=== PATIENT | male | born 1940 | race Caucasian/White ===

== ENCOUNTER 2017-02-05 09:02 | Inpatient (IN) | payer MEDICARE, BC ==
[~2017-02-05] VITALS: Ht 182.9 cm; Wt 91.2 kg
[2017-02-05] VITALS (12 sets, daily range): BP systolic 119–144; BP diastolic 65–80; PULSE 58–88; RESP 16–19; TEMP 96.2–98.2; O2SAT 92–99
[~2017-02-05 09:02] MED LIST: ALBU6.7H INH; ASPI81 PO; CARV3.125 PO; CITA20 PO; DUONI NEB; FURO20 PO; HYDRO25 PO; LISI10 PO; METF850 PO; MIRTA15 PO; PRED5 PO; RANI150T PO; TAB-TAB PO; WALKER ROLLING; WARF7.5 PO
[2017-02-05] MEDS ORDERED: SODIUM CHLORIDE 0.9% FLUSH 10 ML FLUSH IVF PRN (09:30)
--- NOTE | 2017-02-05 09:38 | PD ---
HPI Chief Complaint: shortness of breath Time Seen by Provider: 09:18 Travel History International Travel<30 days: No Contact w/Intl Traveler<30days: No Traveled to known affect area: No History of Present Illness HPI 76-year-old male with history of PE on Coumadin, CHF, CAD, CABG, COPD, brought in by ambulance from shelter for evaluation of shortness of breath. The patient reports that shortest of breath started yesterday evening. The patient felt short of breath at rest. He is also complaining of orthopnea. He denies chest pain. States that he has had a cough that is nonproductive. EMS reports that his O2 saturation was 90% on room air when they arrived at the shelter. PFSH Past Medical History Arthritis: Yes Depression: Yes Heart Rhythm Problems: No Cancer: Yes (SKIN, NOSE) Cardiovascular Problems: Yes (OPEN HEART SX) High Cholesterol: Yes Congestive Heart Failure: No COPD: Yes Diabetes: Yes Diminished Hearing: No Endocrine: Yes Genitourinary: No Hypertension: Yes Musculoskeletal: No Neurologic: No Psychiatric: No Reproductive: No Respiratory: Yes (COPD) Myocardial Infarction: Yes Seizures: No Sleep Apnea: Yes Thyroid Disease: Yes (RESOLVED) Past Surgical History Abdominal Surgery: Yes (COLOSTOMY AND REVERSAL, COLON RESECTION) Cardiac Surgery: Yes (QUAD BYPASS MAY 2007) Coronary Artery Bypass Graft: Yes (4 WAY BYPASS [place] 2006) Other Surgery: Yes Social History Alcohol Use: Yes (OCCASIONALLY) Tobacco Use: No Substance Use: No Allergies-Medications (Allergen,Severity, Reaction): Coded Allergies: No Known Allergies (Verified , 07/22/15) Reported Meds & Prescriptions Reported Meds & Active Scripts Active Reported Lisinopril 5 Mg Tab 5 Mg PO DAILY Multivitamin Adults (Multiple Vitamins W/ Minerals) 1 Tab 1 Tab PO DAILY Furosemide 20 Mg Tab 20 Mg PO DAILY Carvedilol 3.125 Mg Tab 3.125 Mg PO BID Ranitidine (Ranitidine HCl) 150 Mg Tab 150 Mg PO DAILY Mirtazapine 15 Mg Tab 15 Mg PO HS Hydroxyzine HCl 25 Mg Tab 25 Mg PO QID PRN Loperamide (Loperamide HCl) 2 Mg Tab 2 Mg PO DIRECTED PRN One tablet after each loose stool. Not to exceed 8 tablets per day. Warfarin 6 Mg Tab 7 Mg PO DAILY Proventil Hfa 6.7 GM Inh (Albuterol Sulfate) 90 Mcg/Act Aer 1 Puff INH Q4H PRN Levothyroxine (Levothyroxine Sodium) 50 Mcg Tab 50 Mcg PO DAILY Duoneb (Ipratropium-Albuterol Neb) 0.5-2.5 Mg/3 Ml Neb 1 Nebule INH BID Sucralfate 1 Gm Tab 1 Gm PO BID on empty stomach Sertraline (Sertraline HCl) 50 Mg Tab 75 Mg PO DAILY Review of Systems Except as stated in HPI: all other systems reviewed are Neg Physical Exam Narrative GENERAL: Well-developed, well-nourished, elderly-appearing male, mild respiratory distress with accessory muscle use, speaking full sentences. SKIN: Focused skin assessment warm/dry. HEAD: Atraumatic. Normocephalic. EYES: Pupils equal and round. No scleral icterus. No injection or drainage. ENT: Mucous membranes pink and moist. NECK: Trachea midline. No JVD. CARDIOVASCULAR: Regular rate and rhythm. No murmur appreciated. RESPIRATORY: Mild respiratory distress with accessory muscle use. Speaking full sentences. Poor air movement bilaterally. Slight bibasilar rales. No wheezes or rhonchi. GASTROINTESTINAL: Abdomen soft, non-tender, nondistended. MUSCULOSKELETAL: No obvious deformities. No clubbing. No cyanosis. Mild bilateral lower extremity edema from foot to mid leg. NEUROLOGICAL: Awake and alert. No obvious cranial nerve deficits. Motor grossly within normal limits. Normal speech. PSYCHIATRIC: Appropriate mood and affect; insight and judgment normal. Data Data Last Documented VS Vital Signs Date Time Temp Pulse Resp B/P Pulse Ox O2 Delivery O2 Flow Rate FiO2 02/05/17 10:53 58 16 119/65 98 Room Air 2 02/05/17 09:29 98.2 Orders Complete Blood Count With Diff (02/05/17 09:30) Comprehensive Metabolic Panel (02/05/17 09:30) B-Type Natriuretic Peptide (02/05/17 09:30) Act Partial Throm Time (Ptt) (02/05/17:30) Prothrombin Time / Inr (Pt) (02/05/17 09:30) Ckmb (Isoenzyme) Profile (02/05/17 09:30) Troponin I (02/05/17 09:30) Influenzae A/B Antigen (02/05/17 09:30) Iv Access Insert/Monitor (02/05/17 09:30) Ecg Monitoring (02/05/17 09:30) Oximetry (02/05/17 09:30) Oxygen Administration (02/05/17 09:30) Chest, Single Ap (02/05/17 09:30) Sodium Chloride 0.9% Flush (Ns Flush) (02/05/17 09:30) Methylprednisolone So Succ Inj (Solumedr (02/05/17 09:45) Albuterol-Ipratropium Neb (Duoneb Neb) (02/05/17 09:45) Blood Culture (02/05/17 10:00) Ceftriaxone Inj (Rocephin Inj) (02/05/17 10:15) Azithromycin Inj (Zithromax Inj) (02/05/17 10:15) CKMB (02/05/17 09:54) CKMB% (02/05/17 09:54) Furosemide Inj (Lasix Inj) (02/05/17 10:45) Urinary Catheter Insert/Apply (02/05/17 10:38) Labs Laboratory Tests Test 02/05/17 09:54 White Blood Count 6.4 TH/MM3 Red Blood Count 3.52 MIL/MM3 Hemoglobin 9.9 GM/DL Hematocrit 30.3 % Mean Corpuscular Volume 85.9 FL Mean Corpuscular Hemoglobin 28.0 PG Mean Corpuscular Hemoglobin 32.5 % Concent Red Cell Distribution Width 14.4 % Platelet Count 289 TH/MM3 Mean Platelet Volume 8.0 FL Neutrophils (%) (Auto) 63.8 % Lymphocytes (%) (Auto) 22.6 % Monocytes (%) (Auto) 6.4 % Eosinophils (%) (Auto) 2.8 % Basophils (%) (Auto) 4.4 % Neutrophils # (Auto) 4.0 TH/MM3 Lymphocytes # (Auto) 1.5 TH/MM3 Monocytes # (Auto) 0.4 TH/MM3 Eosinophils # (Auto) 0.2 TH/MM3 Basophils # (Auto) 0.3 TH/MM3 CBC Comment DIFF FINAL Differential Comment Prothrombin Time 58.4 SEC Prothromb Time International 4.9 RATIO Ratio Activated Partial 54.8 SEC Thromboplast Time Sodium Level 143 MEQ/L Potassium Level 4.3 MEQ/L Chloride Level 109 MEQ/L Carbon Dioxide Level 25.4 MEQ/L Anion Gap 9 MEQ/L Blood Urea Nitrogen 35 MG/DL Creatinine 2.30 MG/DL Estimat Glomerular Filtration 28 ML/MIN Rate Random Glucose 119 MG/DL Calcium Level 8.5 MG/DL Total Bilirubin 0.5 MG/DL Aspartate Amino Transf 31 U/L (AST/SGOT) Alanine Aminotransferase 18 U/L (ALT/SGPT) Alkaline Phosphatase 113 U/L Total Creatine Kinase 119 U/L Creatine Kinase MB 3.4 NG/ML Troponin I 0.26 NG/ML B-Type Natriuretic Peptide 1063 PG/ML Total Protein 7.1 GM/DL Albumin 3.3 GM/DL [facility] Medical Decision Making Medical Screen Exam Complete: Yes Emergency Medical Condition: Yes Medical Record Reviewed: Yes Interpretation(s) EKG: Sinus, rate 57, leftward axis, incomplete LBBB, ST depressions in V4 through V6, as well as I and a VL, no ST segment elevations. Differential Diagnosis ACS, CHF, COPD exacerbation, PE, pneumothorax, pneumonia Narrative Course Initial vital signs show heart rate 59, blood pressure 144/75, pulse ox 99% on 2 L nasal cannula, oral temp of 98.2F. CBC is remarkable for hemoglobin 9.9, hematocrit 30.3 which is worse than it was 2 years ago in our system. His stool is heme negative and brown. CMP is remarkable for BUN 35, creatinine 2.3, GFR 28 which is much worse than it was when compared to labs 2 years ago. Troponin is 0.26. BNP is 1063. Influenza is negative. INR is 4.9 Chest x-ray: Worsening bibasilar airspace disease. The patient was given 3 DuoNeb treatments without improvement in respiratory symptoms. He was also given a dose of Rocephin and azithromycin and blood cultures were sent after chest x-ray reading was reported. Cooper placed and the patient was also provided 40 mg of IV Lasix. He'll be admitted for further treatment and evaluation of CHF exacerbation, renal insufficiency, dyspnea, hypoxia. Case discussed with hospitalist Dr. Webb who will admit the patient to his service. HemaPrompt Point of Care Internal Pos. & Neg. Controls: Passed Fecal Specimen Occult Blood: Negative Comment Heme-negative, brown stool. Diagnosis Primary Impression: CHF exacerbation Qualified Code: I50.9 - Acute on chronic congestive heart failure, unspecified congestive heart failure type Additional Impressions: Renal insufficiency Dyspnea Qualified Code: R06.01 - Orthopnea Elevated troponin Admitting Information Admitting Physician Requests: Admit Kendrick Black MD February 05, 2017 09:38
[2017-02-05] MEDS ORDERED: methylPREDNISolone SOD SUCC 125 MG/2 ML VIAL IVP ONE (09:45)
[2017-02-05] MEDS: RESP: ALBUTEROL 2.5 MG/IPRATROPIUM 0.5 MG NEB (SCH) INH ×2 (09:45→09:46)
[2017-02-05] MEDS ORDERED: SERT-132 PO (09:47)
[2017-02-05] MEDS ORDERED: IPRASOL INH (09:47)
[2017-02-05] MEDS ORDERED: LEVO50TA4 PO (09:47)
[2017-02-05] MEDS ORDERED: SUCR1TAB PO (09:47)
[2017-02-05] MEDS ORDERED: RANI150T PO (09:47)
[2017-02-05] MEDS ORDERED: LOPE2TAB3 PO (09:47)
[2017-02-05] MEDS ORDERED: CARV3.12 PO (09:47)
[2017-02-05] MEDS ORDERED: FURO20TA PO (09:47)
[2017-02-05] MEDS ORDERED: MULT1TAB84 PO (09:47)
[2017-02-05] MEDS ORDERED: ALBU6.7H INH (09:47)
[2017-02-05] MEDS ORDERED: MIRTA15 PO (09:47)
[2017-02-05] MEDS ORDERED: LISI-519 PO (09:47)
[2017-02-05] MEDS ORDERED: WARF-60 PO (09:47)
[2017-02-05] MEDS ORDERED: HYDR-3133 PO (09:47)
--- NOTE | 2017-02-05 09:56 | RADHPO ---
EXAM DATE/TIME: 02/05/2017 09:40 [place] COMPARISON: CHEST SINGLE AP, July 22, 2015, 17:45. INDICATIONS : Short of breath MEDICAL HISTORY : None. SURGICAL HISTORY : CABG. ENCOUNTER: Initial ACUITY: 2 days PAIN SCORE: 0/10 LOCATION: Bilateral chest FINDINGS: A single view of the chest demonstrates cardiomegaly with bibasilar airspace disease. Previous CABG. Osseous structures are intact. CONCLUSION: Worsening bibasilar airspace disease. Chet Suero MD on February 05, 2017 at 9:53 Board Certified Radiologist. This report was verified electronically.
[2017-02-05 09:58] LABS: BASOPHIL # 0.3 TH/MM3 (0-0.2); BASOPHIL % 4.4 % (0.0-2.0); EOSINOPHIL # 0.2 TH/MM3 (0-0.4); EOSINOPHIL % 2.8 % (0.0-4.0); HEMATOCRIT 30.3 % (39.0-51.0); HEMO FLAGS DIFF FINAL; LYMPH % 22.6 % (9.0-44.0); LYMPHOCYTE # 1.5 TH/MM3 (1.0-4.8); MEAN CELL VOLUME 85.9 FL (80.0-100.0); MEAN CORPUSCULAR HGB CONC 32.5 % (32.0-36.0); MONO % 6.4 % (0.0-8.0); NEUT % 63.8 % (16.0-70.0); PLATELET COUNT 289 TH/MM3 (150-450); RED BLOOD COUNT 3.52 MIL/MM3 (4.50-5.90); RED CELL DISTRIBUTION WIDTH 14.4 % (11.6-17.2); WHITE BLOOD COUNT 6.4 TH/MM3 (4.0-11.0)
[2017-02-05] MEDS ORDERED: cefTRIAXone INJ 1,000 MG in SODIUM CHLORIDE 0.9% INJ 100 ML IV ONE (10:15)
[2017-02-05] MEDS ORDERED: AZITHROMYCIN INJ 500 MG in SODIUM CHLOR 0.9% 250 ML INJ 250 ML IV ONE (10:15)
[2017-02-05 10:20] LABS: BICARBONATE 25.4 MEQ/L (21.0-32.0); BLOOD UREA NITROGEN 35 MG/DL (7-18)
[2017-02-05 10:22] LABS: APTT (PATIENT) 54.8 SEC (24.3-30.1); INTERNATIONAL NORMALIZED RATIO 4.9 RATIO; PROTHROMBIN TIME - PATIENT 58.4 SEC (9.8-11.6)
[2017-02-05 10:23] LABS: AST (GOT) 31 U/L (15-37); GLOMERULAR FILTRATION RATE 28 ML/MIN (>89)
[2017-02-05 10:24] LABS: TOTAL BILIRUBIN ADULT 0.5 MG/DL (0.2-1.0)
[2017-02-05 10:25] LABS: ANION GAP 9 MEQ/L (5-15); CHLORIDE 109 MEQ/L (98-107); CREATINE KINASE 119 U/L (39-308); SODIUM (NA) 143 MEQ/L (136-145)
[2017-02-05 10:26] LABS: ALKALINE PHOSPHATASE 113 U/L (45-117); POTASSIUM 4.3 MEQ/L (3.5-5.1)
[2017-02-05 10:28] LABS: ALT (GPT) 18 U/L (12-78)
[2017-02-05 10:42] LABS: CKMB 3.4 NG/ML (0.5-3.6)
[2017-02-05] MEDS ORDERED: FUROSEMIDE 40 MG/4 ML VIAL IV PUSH ONE (10:45)
[2017-02-05] MEDS ORDERED: ASPIRIN 81 MG CHEW TAB PO ONE (11:15)
[2017-02-05] MEDS ORDERED: SODIUM CHLORIDE 0.9% FLUSH 10 ML FLUSH IV FLUSH PRN (11:15)
[2017-02-05] MEDS ORDERED: ALBUTEROL SULFATE 90 MCG/ACT HFA 18 GM INHALER INH PRN (11:30)
[2017-02-05] MEDS: FAMOTIDINE 20 MG TAB PO SCH ×2 (11:38→20:33)
--- NOTE | 2017-02-05 14:49 | HHI.HP ---
[facility] Stas Sal Admission Diagnosis CHF exacerbation, renal insufficiency, dyspnea, elevated troponin Diagnoses: Chief Complaint: Shortness of breath Travel History International Travel<30 Days: No Contact w/Intl Traveler <30 Da: No Traveled to Known Affected Are: No History of Present Illness 76-year-old male with a medical history significant for congestive heart failure with LVEF of 20-25% in 2015, coronary artery disease status post CABG, COPD, history of PE sent from a [facility] nursing facility for shortness of breath. Patient reports since yesterday he has been having severe shortness of breath. It persisted throughout the day and he was unable to sleep last night because he could not lay flat. He denies any chest pain. He reports that his health has been declining. He believes that he has been on postcontrast nursing facility since October. He endorsed a mild nonproductive cough. EMS reported room air saturation of 90% on arrival at the intermediate. Review of Systems Constitutional: COMPLAINS OF: Fatigue, DENIES: Fever, Chills Respiratory: COMPLAINS OF: Cough, Shortness of breath, DENIES: Sputum production Cardiovascular: DENIES: Chest pain Gastrointestinal: DENIES: Nausea, Vomiting Except as stated in HPI: all other systems reviewed are Neg Past Family Social History Past Medical History Coronary artery disease status post CABG CHF, LVEF of 20-25% in 2015 COPD Depression Past Surgical History CABG Colon resection, colostomy and reversal Reported Medications Reported Meds & Active Scripts Active Reported Lisinopril 5 Mg Tab 5 Mg PO DAILY Multivitamin Adults (Multiple Vitamins W/ Minerals) 1 Tab 1 Tab PO DAILY Furosemide 20 Mg Tab 20 Mg PO DAILY Carvedilol 3.125 Mg Tab 3.125 Mg PO BID Ranitidine (Ranitidine HCl) 150 Mg Tab 150 Mg PO DAILY Mirtazapine 15 Mg Tab 15 Mg PO HS Hydroxyzine HCl 25 Mg Tab 25 Mg PO QID PRN Loperamide (Loperamide HCl) 2 Mg Tab 2 Mg PO DIRECTED PRN One tablet after each loose stool. Not to exceed 8 tablets per day. Warfarin 6 Mg Tab 7 Mg PO DAILY Proventil Hfa 6.7 GM Inh (Albuterol Sulfate) 90 Mcg/Act Aer 1 Puff INH Q4H PRN Levothyroxine (Levothyroxine Sodium) 50 Mcg Tab 50 Mcg PO DAILY Duoneb (Ipratropium-Albuterol Neb) 0.5-2.5 Mg/3 Ml Neb 1 Nebule INH BID Sucralfate 1 Gm Tab 1 Gm PO BID on empty stomach Sertraline (Sertraline HCl) 50 Mg Tab 75 Mg PO DAILY Allergies: Coded Allergies: No Known Allergies (Verified , 07/22/15) Family History Patient does not know. Social History Patient reports he quit smoking tobacco 20 years ago. Used to drink alcohol socially. Physical Exam Vital Signs Vital Signs Date Time Temp Pulse Resp B/P Pulse Ox O2 Delivery O2 Flow Rate FiO2 02/05/17 12:00 97.6 88 17 135/77 94 02/05/17 11:43 76 18 138/80 98 Nasal Cannula 2 02/05/17 10:53 58 16 119/65 98 Room Air 2 02/05/17 09:47 99 Nasal Cannula 1.00 02/05/17 09:35 99 Nasal Cannula 2 02/05/17 09:35 99 Nasal Cannula 2 02/05/17 09:29 98.2 59 16 144/75 99 Physical Exam GENERAL: Frail elderly male, in mild respiratory distress with minimal activities. SKIN: No rashes, ecchymoses or lesions. Cool and dry. HEAD: Atraumatic. Normocephalic. No temporal or scalp tenderness. EYES: Pupils equal round and reactive. Extraocular motions intact. No scleral icterus. No injection or drainage. ENT: Nose without bleeding, purulent drainage or septal hematoma. Throat without erythema, tonsillar hypertrophy or exudate. Uvula midline. Airway patent. NECK: Trachea midline. No JVD or lymphadenopathy. Supple, nontender, no meningeal signs. CARDIOVASCULAR: Distant heart sound, Regular rate and rhythm. No appreciable murmurs. RESPIRATORY: Bibasilar crackles, diffuse faint expiratory wheezing. GASTROINTESTINAL: Abdomen soft, non-tender, nondistended. No hepato-splenomegaly , or palpable masses. No guarding. MUSCULOSKELETAL: Extremities without clubbing, cyanosis, or edema. No joint tenderness, effusion, or edema noted. No calf tenderness. Negative Homans sign bilaterally. NEUROLOGICAL: Awake and alert. Generalized weakness. Normal speech. Laboratory Laboratory Tests Test 02/05/17 09:54 White Blood Count 6.4 Red Blood Count 3.52 Hemoglobin 9.9 Hematocrit 30.3 Mean Corpuscular Volume 85.9 Mean Corpuscular Hemoglobin 28.0 Mean Corpuscular Hemoglobin 32.5 Concent Red Cell Distribution Width 14.4 Platelet Count 289 Mean Platelet Volume 8.0 Neutrophils (%) (Auto) 63.8 Lymphocytes (%) (Auto) 22.6 Monocytes (%) (Auto) 6.4 Eosinophils (%) (Auto) 2.8 Basophils (%) (Auto) 4.4 Neutrophils # (Auto) 4.0 Lymphocytes # (Auto) 1.5 Monocytes # (Auto) 0.4 Eosinophils # (Auto) 0.2 Basophils # (Auto) 0.3 CBC Comment DIFF FINAL Differential Comment Prothrombin Time 58.4 Prothromb Time International 4.9 Ratio Activated Partial 54.8 Thromboplast Time Sodium Level 143 Potassium Level 4.3 Chloride Level 109 Carbon Dioxide Level 25.4 Anion Gap 9 Blood Urea Nitrogen 35 Creatinine 2.30 Estimat Glomerular Filtration 28 Rate Random Glucose 119 Calcium Level 8.5 Total Bilirubin 0.5 Aspartate Amino Transf 31 (AST/SGOT) Alanine Aminotransferase 18 (ALT/SGPT) Alkaline Phosphatase 113 Total Creatine Kinase 119 Creatine Kinase MB 3.4 Troponin I 0.26 B-Type Natriuretic Peptide 1063 Total Protein 7.1 Albumin 3.3 Date/Time Procedure Status Source Growth 02/05/17 10:36 Aerobic Blood Culture Received Blood Peripheral Pending 02/05/17 10:36 Anaerobic Blood Culture Received Blood Peripheral Pending 02/05/17 10:30 Influenza Types A,B Antigen (FERNIE) - Final Complete Nasal Washing NEGATIVE FOR FLU A AND B ANTIGEN.... Result Diagram: 02/05/17 0954 02/05/17 0954 Imaging Last Impressions Chest X-Ray 02/05/17 0930 Signed Impressions: Service Date/Time: Sunday, February 05, 2017 09:40 - CONCLUSION: Worsening bibasilar airspace disease. Chet Suero MD Assessment and Plan Problem List: (1) Systolic CHF, acute on chronic ICD Code: I50.23 Status: Acute (2) Elevated troponin ICD Code: R77.8 Status: Resolved (3) Renal insufficiency ICD Code: N28.9 Status: Acute (4) Ischemic cardiomyopathy ICD Code: I25.5 Status: Acute (5) Coronary artery disease ICD Code: I25.10 Status: Chronic (6) Chronic obstructive pulmonary disease ICD Code: J44.9 Status: Chronic Assessment and Plan 76-year-old male with history of coronary artery disease status post CABG, COPD , severe CHF with EF of 20% admitted for acute systolic CHF exacerbation and respiratory failure: Respiratory failure: Combination of acute CHF and probable COPD exacerbation. Chest x-ray image reviewed, bibasilar airspace disease. Patient is wheezing on exam. - Treat CHF and at steroids for probable COPD exacerbation. - Supplemental oxygen, breathing treatments Acute systolic CHF exacerbation: BNP 1000. Chest x-ray consistent with heart failure. LVEF in 2015 was 20-25%. - Treat with IV Lasix 40 mg IV every 12 hours - Strict I/O. Fluid restrict to 1800 cc per 24 hours - Hold lisinopril and Coreg for now given borderline blood pressure and renal failure. Acute renal failure: May be secondary to heart failure as above. - Monitor closely with diuretics. Avoid nephrotoxins. - Follow-up BMP in a.m. Elevated troponin: Likely secondary to CHF exacerbation and in renal failure. EKG reviewed. Sinus bradycardia. No acute ST changes compared to prior. - Aspirin daily. Plan to resume Coreg when blood pressure can tolerate. Trend cardiac enzymes. Probable COPD exacerbation: Patient is wheezing on exam with worsening shortness of breath. - Will start short course of prednisone 40 mg daily. - Breathing treatments History of PE. Patient is on Coumadin. INR therapeutic. Follow. - Consult pharmacy. DVT prevention: On Coumadin with therapeutic INR. Discussed Condition With Dr. Black Physician Certification 2 Midnight Certification Type: Admission for Inpatient Services Order for Inpatient Services The services are ordered in accordance with Medicare regulations or non- Medicare payer requirements, as applicable. In the case of services not specified as inpatient-only, they are appropriately provided as inpatient services in accordance with the 2-midnight benchmark. Estimated LOS (days): 3 days is the estimated time the patient will need to remain in the hospital, assuming treatment plan goals are met and no additional complications. Post-Hospital Plan: [facility] Jhoan Webb MD February 05, 2017 14:49
--- NOTE | 2017-02-05 15:51 | EC ---
Study Study Date:02/05/2017 STUDY CONCLUSIONS SUMMARY - Left ventricle: The cavity size was mildly dilated. Systolic function was severely reduced. The estimated ejection fraction was in the range of 25% to 30%. Wall motion was normal; there were no regional wall motion abnormalities. - Aortic valve: Mild to moderate regurgitation. - Mitral valve: Moderate to severe regurgitation. - Tricuspid valve: Mild-moderate regurgitation. - Pulmonary arteries: PA peak pressure: 61mm Hg (S). If LV function is below 40, please consider prescribing an ACEI or ARB or document rationale for non-use. PROCEDURE DATA STUDY STATUS: Elective. Procedure: Transthoracic echocardiography. Image quality was good. Scanning was performed from the parasternal, apical, and subcostal acoustic windows. Study completion: The patient tolerated the procedure well. Transthoracic echocardiography. M-mode, complete 2D, complete spectral Doppler, and color Doppler. Patient status: Inpatient. CARDIAC ANATOMY LEFT VENTRICLE: The cavity size was mildly dilated. Systolic function was severely reduced. The estimated ejection fraction was in the range of 25% to 30%. Wall motion was normal; there were no regional wall motion abnormalities. AORTIC VALVE: Trileaflet; mildly thickened, mildly calcified leaflets. Doppler: Transvalvular velocity was within the normal range. There was no stenosis. Mild to moderate regurgitation. AORTA: Aortic root: The aortic root was normal in size. MITRAL VALVE: Structurally normal valve. Doppler: Transvalvular velocity was within the normal range. There was no evidence for stenosis. Moderate to severe regurgitation. Valve area by pressure half-time: 4.4cm^2. Mean gradient: 2mm Hg (D). LEFT ATRIUM: The atrium was normal in size. RIGHT VENTRICLE: The cavity size was normal. Wall thickness was normal. PULMONIC VALVE: Doppler: Transvalvular velocity was within the normal range. There was no evidence for stenosis. No regurgitation. TRICUSPID VALVE: Structurally normal valve. Doppler: Transvalvular velocity was within the normal range. Mild-moderate regurgitation. PULMONARY ARTERY: The main pulmonary artery was normal-sized. Systolic pressure was within the normal range. RIGHT ATRIUM: The atrium was normal in size. PERICARDIUM: There was no pericardial effusion. SYSTEMIC VEINS: Inferior vena cava: The vessel was normal in size. BASIC MEASUREMENTS ADULT Normal Left ventricle LV internal dimension, ED, chordal level, *58.6 mm 43-52 PLAX LV internal dimension, ES, chordal level, *54 mm 23-38 PLAX Fractional shortening, chordal level, PLAX *8 % >29 LV posterior wall thickness, ED 8.99 mm IVS/LVPW ratio, ED 1.09 <1.3 Ventricular septum Septal thickness, ED 9.81 mm Aortic valve Leaflet separation 19 mm 15-26 Left atrium Anterior-posterior dimension 34 mm Right ventricle RV internal dimension, ED, PLAX 23.6 mm 19-38 BASIC MEASUREMENTS ADULT Normal Aortic valve Leaflet separation 19 mm 15-26 Aorta Root diameter, ED 31 mm 20-37 DOPPLER MEASUREMENTS ADULT Normal Main pulmonary artery Pressure, S *61 mm Hg =30 Aortic valve Peak velocity, S 138 cm/s VTI, S 28 cm Mitral valve Peak E-wave velocity 69.6 cm/s Peak A-wave velocity 32.1 cm/s Mean velocity, D 65 cm/s Pressure half-time 50 ms Mean gradient, D 2 mm Hg Peak E/A ratio 2.2 Valve area, pressure half-time 4.4 cm^2 Maximal regurgitant velocity 402 cm/s Tricuspid valve Regurgitant peak velocity 361 cm/s Peak RV-RA gradient, S 52 mm Hg Maximal regurgitant velocity 361 cm/s Systemic veins Estimated CVP 5 mm Hg Right ventricle RV pressure, S *61 mm Hg <30 LEGEND: Mean values are shown as u=mean value. Asterisk (*) browning values outside specified normal range. Prepared and signed by Benitez Moncada [id number]
[2017-02-05] MEDS: RESP: ALBUTEROL 2.5 MG/IPRATROPIUM 0.5 MG NEB (SCH) NEB ×2 (16:07→19:34)
[2017-02-05] MEDS: FUROSEMIDE 40 MG/4 ML VIAL IVP SCH (17:02)
[2017-02-05] MEDS: predniSONE 20 MG TAB PO SCH (17:02)
[2017-02-05] MEDS ORDERED: RESP: ALBUTEROL 2.5 MG/IPRATROPIUM 0.5 MG NEB (SCH) INH (20:00)
[2017-02-05] MEDS: MIRTAZAPINE 15 MG TAB PO SCH (20:33)
[2017-02-05] MEDS: SODIUM CHLORIDE 0.9% FLUSH 10 ML FLUSH IV FLUSH SCH (20:33)
[2017-02-05] MEDS: SUCRALFATE 1 GM TAB PO SCH (20:33)
[2017-02-05] MEDS ORDERED: CARVEDILOL 3.125 MG TAB PO SCH (21:00)
[2017-02-06] VITALS (9 sets, daily range): BP systolic 95–158; BP diastolic 54–98; PULSE 65–86; RESP 16–19; TEMP 96–98; O2SAT 93–100
[2017-02-06] MEDS: LEVOTHYROXINE SODIUM 50 MCG TAB PO SCH (05:31)
[2017-02-06 06:24] LABS: HEMATOCRIT 29.9 % (39.0-51.0); MEAN CELL VOLUME 86.4 FL (80.0-100.0); MEAN CORPUSCULAR HEMOGLOBIN 27.9 PG (27.0-34.0); MEAN CORPUSCULAR HGB CONC 32.3 % (32.0-36.0); PLATELET COUNT 247 TH/MM3 (150-450); RED BLOOD COUNT 3.46 MIL/MM3 (4.50-5.90); RED CELL DISTRIBUTION WIDTH 14.5 % (11.6-17.2); REVIEW FLAG FINAL; WHITE BLOOD COUNT 9.5 TH/MM3 (4.0-11.0)
[2017-02-06 06:50] LABS: PROTHROMBIN TIME - PATIENT 75.9 SEC (9.8-11.6)
[2017-02-06 06:53] LABS: INTERNATIONAL NORMALIZED RATIO 6.3 RATIO
[2017-02-06 07:02] LABS: BICARBONATE 25.9 MEQ/L (21.0-32.0); POTASSIUM 3.4 MEQ/L (3.5-5.1)
[2017-02-06] MEDS: RESP: ALBUTEROL 2.5 MG/IPRATROPIUM 0.5 MG NEB (SCH) NEB ×4 (08:48→19:48)
--- NOTE | 2017-02-06 08:56 | HHI.PR ---
Subjective Remarks Patient seen in follow-up for acute systolic CHF exacerbation He reports he is feeling better. Shortness of breath has improved. No chest pain. Objective Vitals Vital Signs Date Time Temp Pulse Resp B/P Pulse Ox O2 Delivery O2 Flow Rate FiO2 02/06/17 08:00 97.7 76 18 158/98 93 02/06/17 05:28 96.8 70 18 120/71 98 02/06/17 00:18 96.0 65 16 116/69 97 02/05/17 23:00 66 02/05/17 21:48 96.2 66 18 134/77 95 02/05/17 20:35 66 02/05/17 19:34 92 Nasal Cannula 2.00 02/05/17 16:00 97.6 80 19 130/75 94 02/05/17 15:04 65 02/05/17 12:00 97.6 88 17 135/77 94 02/05/17 11:43 76 18 138/80 98 Nasal Cannula 2 02/05/17 10:53 58 16 119/65 98 Room Air 2 02/05/17 09:47 99 Nasal Cannula 1.00 02/05/17 09:35 99 Nasal Cannula 2 02/05/17 09:35 99 Nasal Cannula 2 02/05/17 09:29 98.2 59 16 144/75 99 I/O 02/05/17 02/05/17 02/05/17 02/06/17 02/06/17 02/06/17 07:00 15:00 23:00 07:00 15:00 23:00 Intake Total 240 ml Output Total 500 ml 1750 ml Balance -500 ml -1510 ml Intake Oral 240 ml Output Urine Total 500 ml 1750 ml # Voids 0 # Bowel Movements 0 Result Diagram: 02/06/17 0600 02/06/17 0600 Objective Remarks GENERAL: This is a well-nourished, well-developed patient, in no apparent distress. CARDIOVASCULAR: Distant heart sound, Regular rate and rhythm. No appreciable murmurs. RESPIRATORY: Faint bibasilar crackles, diffuse faint expiratory wheezing. GASTROINTESTINAL: Abdomen soft, non-tender, non-distended. Normal active bowel sounds MUSCULOSKELETAL: Extremities without cyanosis, or edema. NEURO: Alert & Oriented x4 to person, place, time, situation. Moves all ext x4 PSYCH: Appropriate mood and affect. A/P Problem List: (1) Systolic CHF, acute on chronic ICD Code: I50.23 Status: Acute (2) Elevated troponin ICD Code: R77.8 Status: Resolved (3) Renal insufficiency ICD Code: N28.9 Status: Acute (4) Ischemic cardiomyopathy ICD Code: I25.5 Status: Acute (5) Coronary artery disease ICD Code: I25.10 Status: Chronic (6) Chronic obstructive pulmonary disease ICD Code: J44.9 Status: Chronic Assessment and Plan 76-year-old male with history of coronary artery disease status post CABG, COPD , severe CHF with EF of 25% admitted for acute systolic CHF exacerbation and respiratory failure: Respiratory failure: Combination of acute CHF and probable COPD exacerbation. Chest x-ray image reviewed, bibasilar airspace disease. Patient is wheezing on exam. -Continue to treat CHF and steroids, breathing treatments for probable COPD exacerbation. - Supplemental oxygen, breathing treatments Acute systolic CHF exacerbation: BNP 1000. Chest x-ray consistent with heart failure. LVEF is 25-30%. -Continue with IV Lasix 40 mg IV every 12 hours. Plan to transition to oral tomorrow - Strict I/O. Fluid restrict to 1800 cc per 24 hours -Resume Coreg. Continue to hold lisinopril given renal failure Acute renal failure: May be secondary to heart failure as above. - Renal function essentially unchanged today. - Monitor closely with diuretics. Avoid nephrotoxins. - Follow-up BMP in a.m. Elevated troponin: Trended down. Likely secondary to CHF exacerbation and in renal failure. EKG reviewed. Sinus bradycardia. No acute ST changes compared to prior. - Aspirin daily. Resume Coreg. Probable COPD exacerbation: Patient is wheezing on exam with worsening shortness of breath. - Short course of prednisone 40 mg daily. - Breathing treatments Hypokalemia: Replace. Check mag. History of PE. Patient is on Coumadin. INR supratherapeutic. Hold Coumadin. Follow. - Consult pharmacy. DVT prevention: On Coumadin with therapeutic INR. Discharge Planning Possible discharge in 1-2 days back to the alf facility if patient continues to improve. Jhoan Webb MD February 06, 2017 08:56
[2017-02-06] MEDS: FUROSEMIDE 40 MG/4 ML VIAL IVP SCH ×2 (09:03→17:32)
[2017-02-06] MEDS: ASPIRIN 325 MG TAB PO SCH (09:04)
[2017-02-06] MEDS: SODIUM CHLORIDE 0.9% FLUSH 10 ML FLUSH IV FLUSH SCH ×2 (09:04→21:06)
[2017-02-06] MEDS: FAMOTIDINE 20 MG TAB PO SCH ×2 (09:04→21:06)
[2017-02-06] MEDS: MULTIVITAMINS/MINERALS THERAPEUTIC TAB PO SCH (09:04)
[2017-02-06] MEDS: predniSONE 20 MG TAB PO SCH (09:04)
[2017-02-06] MEDS ORDERED: POTASSIUM CHLORIDE 10 MEQ CONTROLLED RELEASE TAB PO ONE (11:00)
[2017-02-06] MEDS: SUCRALFATE 1 GM TAB PO SCH ×2 (11:28→21:06)
--- NOTE | 2017-02-06 15:16 | EKG ---
Date Performed: 02/05/2017 Time Performed: 09:23:20 PTAGE: 76 years EKG: Sinus bradycardia with PAC(s) Incomplete LBBB Extensive ST-T changes are nonspecific Probab le left ventricular hypertrophy. When compared to previous tracing, premature ventricular Contraction s have resolved. There has been some slight variation in the nonspecific ST-T Wave changes, but no ot her significant serial change. Abnormal ECG PREVIOUS TRACING : 07/23/2015 07.59 DOCTOR: Leia Desai Interpretating Date/Time 02/06/2017 15:15:22
[2017-02-06] MEDS: MIRTAZAPINE 15 MG TAB PO SCH (21:06)
[2017-02-06] MEDS: CARVEDILOL 3.125 MG TAB PO SCH (21:06)
[2017-02-07] VITALS (9 sets, daily range): BP systolic 115–133; BP diastolic 54–77; PULSE 55–80; RESP 16–20; TEMP 95.5–96.7; O2SAT 93–99
[2017-02-07] MEDS: LEVOTHYROXINE SODIUM 50 MCG TAB PO SCH (05:04)
[2017-02-07 07:03] LABS: HEMATOCRIT 27.9 % (39.0-51.0); MEAN CELL VOLUME 85.4 FL (80.0-100.0); MEAN CORPUSCULAR HEMOGLOBIN 28.2 PG (27.0-34.0); PLATELET COUNT 241 TH/MM3 (150-450); RED BLOOD COUNT 3.27 MIL/MM3 (4.50-5.90); RED CELL DISTRIBUTION WIDTH 14.5 % (11.6-17.2); REVIEW FLAG FINAL; WHITE BLOOD COUNT 9.5 TH/MM3 (4.0-11.0)
[2017-02-07 07:13] LABS: POTASSIUM 3.5 MEQ/L (3.5-5.1)
[2017-02-07 07:14] LABS: INTERNATIONAL NORMALIZED RATIO 4.5 RATIO; PROTHROMBIN TIME - PATIENT 53.7 SEC (9.8-11.6)
[2017-02-07 07:19] LABS: BICARBONATE 30.1 MEQ/L (21.0-32.0)
[2017-02-07] MEDS: RESP: ALBUTEROL 2.5 MG/IPRATROPIUM 0.5 MG NEB (SCH) NEB ×4 (07:50→20:00)
[2017-02-07] MEDS: CARVEDILOL 3.125 MG TAB PO SCH ×2 (09:00→21:09)
[2017-02-07] MEDS: SODIUM CHLORIDE 0.9% FLUSH 10 ML FLUSH IV FLUSH SCH ×2 (09:23→21:10)
[2017-02-07] MEDS: FUROSEMIDE 40 MG/4 ML VIAL IVP SCH (09:23)
[2017-02-07] MEDS: SUCRALFATE 1 GM TAB PO SCH ×2 (09:23→21:09)
[2017-02-07] MEDS: ASPIRIN 325 MG TAB PO SCH (09:23)
[2017-02-07] MEDS: predniSONE 20 MG TAB PO SCH (09:24)
[2017-02-07] MEDS: MULTIVITAMINS/MINERALS THERAPEUTIC TAB PO SCH (09:24)
[2017-02-07] MEDS: FAMOTIDINE 20 MG TAB PO SCH ×2 (09:24→21:09)
--- NOTE | 2017-02-07 10:33 | HHI.PR ---
Subjective Remarks Patient seen in follow-up for acute systolic CHF exacerbation Reports is feeling better. Breathing more comfortably. Has not been out of bed yet. We'll have PT evaluate. He is still using oxygen at this point. Objective Vitals Vital Signs Date Time Temp Pulse Resp B/P Pulse Ox O2 Delivery O2 Flow Rate FiO2 02/07/17 08:00 96.0 56 20 128/77 93 02/07/17 07:52 97 Nasal Cannula 2.00 02/07/17 04:00 96.0 55 18 115/54 98 02/07/17 00:00 95.5 80 16 122/71 98 02/06/17 20:00 75 02/06/17 20:00 96.0 77 18 95/54 99 02/06/17 16:00 98.0 86 19 145/76 100 02/06/17 12:00 97.5 78 19 143/76 94 02/06/17 11:35 95 Nasal Cannula 2.00 I/O 02/06/17 02/06/17 02/06/17 02/07/17 02/07/17 02/07/17 07:00 15:00 23:00 07:00 15:00 23:00 Intake Total 240 ml 120 ml 800 ml 240 ml Output Total 1750 ml 600 ml 800 ml 800 ml 200 ml Balance -1510 ml -480 ml 0 ml -560 ml -200 ml Intake Oral 240 ml 120 ml 800 ml 240 ml Output Urine Total 1750 ml 600 ml 800 ml 800 ml 200 ml # Bowel Movements 0 0 0 Result Diagram: 02/07/17 0645 02/07/17 06 Objective Remarks GENERAL: This is a well-nourished, well-developed patient, in no apparent distress. CARDIOVASCULAR: Distant heart sound, Regular rate and rhythm. No appreciable murmurs. RESPIRATORY: Faint bibasilar crackles, no longer wheezing. Rest of the lung keller clear to auscultation. GASTROINTESTINAL: Abdomen soft, non-tender, non-distended. Normal active bowel sounds MUSCULOSKELETAL: Extremities without cyanosis, or edema. NEURO: Alert & Oriented x4 to person, place, time, situation. Moves all ext x4 PSYCH: Appropriate mood and affect. A/P Problem List: (1) Systolic CHF, acute on chronic ICD Code: I50.23 Status: Acute (2) Elevated troponin ICD Code: R77.8 Status: Resolved (3) Renal insufficiency ICD Code: N28.9 Status: Acute (4) Ischemic cardiomyopathy ICD Code: I25.5 Status: Acute (5) Coronary artery disease ICD Code: I25.10 Status: Chronic (6) Chronic obstructive pulmonary disease ICD Code: J44.9 Status: Chronic Assessment and Plan 76-year-old male with history of coronary artery disease status post CABG, COPD , severe CHF with EF of 25% admitted for acute systolic CHF exacerbation and respiratory failure: Respiratory failure: Combination of acute CHF and probable COPD exacerbation. Chest x-ray image reviewed, bibasilar airspace disease. Patient with wheezing on admission. -Continue to treat CHF and steroids, breathing treatments for probable COPD exacerbation. - Supplemental oxygen, breathing treatments - He is improving. Wean down oxygen as tolerated. Acute systolic CHF exacerbation: BNP 1000 on admission. Chest x-ray consistent with heart failure. LVEF is 25-30%. -Switch to oral Lasix, 40 mg daily. - Strict I/O. Fluid restrict to 1800 cc per 24 hours - Resume Coreg. Continue to hold lisinopril given renal failure and borderline low blood pressure. Acute renal failure: May be secondary to heart failure as above. - Renal function slightly worse today. May be secondary to diuretics. - Monitor closely with diuretics. Avoid nephrotoxins. - Follow-up BMP in a.m. Elevated troponin: Trended down. Likely secondary to CHF exacerbation and in renal failure. EKG reviewed. Sinus bradycardia. No acute ST changes compared to prior. - Aspirin daily. Resume Coreg. Probable COPD exacerbation: Patient is wheezing on exam with worsening shortness of breath. - Short course of prednisone 40 mg daily. - Breathing treatments Hypokalemia: Replace. Check mag. History of PE. Patient is on Coumadin. INR supratherapeutic. Hold Coumadin. Follow. - Consult pharmacy. DVT prevention: On Coumadin with therapeutic INR. Discharge Planning Possible discharge tomorrow to longterm facility if he continues to improve. Jhoan Webb MD February 07, 2017 10:33
[2017-02-07] MEDS ORDERED: POTASSIUM CHLORIDE 20 MEQ CONTROLLED RELEASE TAB PO ONE (11:00)
[2017-02-07] MEDS: MIRTAZAPINE 15 MG TAB PO SCH (21:09)
[2017-02-08] VITALS: BP 110/66; PULSE 68; RESP 19; TEMP 97.9; O2SAT 95
[2017-02-08 04:00] VITALS: BP 123/87; PULSE 82; RESP 21; TEMP 96.1; O2SAT 96
[2017-02-08] MEDS: LEVOTHYROXINE SODIUM 50 MCG TAB PO SCH (05:55)
[2017-02-08 07:13] LABS: INTERNATIONAL NORMALIZED RATIO 2.6 RATIO; PROTHROMBIN TIME - PATIENT 29.8 SEC (9.8-11.6)
[2017-02-08 07:15] LABS: POTASSIUM 3.3 MEQ/L (3.5-5.1)
[2017-02-08 07:21] LABS: BICARBONATE 30.1 MEQ/L (21.0-32.0)
[2017-02-08 08:00] VITALS: BP 146/83; PULSE 61; RESP 20; TEMP 97.1; O2SAT 93
[2017-02-08] MEDS: ASPIRIN 325 MG TAB PO SCH (08:13)
[2017-02-08] MEDS: SODIUM CHLORIDE 0.9% FLUSH 10 ML FLUSH IV FLUSH SCH (08:13)
[2017-02-08] MEDS: SUCRALFATE 1 GM TAB PO SCH (08:13)
[2017-02-08] MEDS: CARVEDILOL 3.125 MG TAB PO SCH (08:13)
[2017-02-08] MEDS: predniSONE 20 MG TAB PO SCH (08:13)
[2017-02-08] MEDS: FAMOTIDINE 20 MG TAB PO SCH (08:14)
[2017-02-08] MEDS: MULTIVITAMINS/MINERALS THERAPEUTIC TAB PO SCH (08:14)
[2017-02-08] MEDS: RESP: ALBUTEROL 2.5 MG/IPRATROPIUM 0.5 MG NEB (SCH) NEB ×2 (08:24→11:32)
[2017-02-08 08:26] VITALS: O2SAT 97
[2017-02-08] MEDS ORDERED: FUROSEMIDE 40 MG TAB PO SCH (09:00)
[2017-02-08] MEDS ORDERED: FURO40TA PO (09:02)
[2017-02-08] MEDS ORDERED: ALBU6.7H INH (09:02)
[2017-02-08] MEDS ORDERED: IPRASOL INH (09:02)
[2017-02-08] MEDS ORDERED: LISI2.5T3 PO (09:02)
--- NOTE | 2017-02-08 09:03 | HHI.DCPOC ---
Discharge Care Plan Diagnosis: (1) Systolic CHF, acute on chronic (2) Ischemic cardiomyopathy (3) Chronic obstructive pulmonary disease (4) Renal insufficiency (5) Gait instability Goals to Promote Your Health * To prevent worsening of your condition and complications * To maintain your health at the optimal level Directions to Meet Your Goals Take your medications as prescribed Follow your dietary instruction Follow activity as directed Keep your appointments as scheduled Take your immunizations and boosters as scheduled If your symptoms worsen call your PCP, if no PCP go to Urgent Care Center or Emergency Room Smoking is Dangerous to Your Health. Avoid second hand smoke Call the 24-hour hour crisis hotline for domestic abuse at Jhoan Webb MD February 08, 2017 09:03
--- NOTE | 2017-02-08 09:11 | HHI.DS ---
Discharge Summary Admission Date February 05, 2017 at 11:10 Discharge Date: February 08, 2017 Admitting Diagnosis CHF exacerbation, renal insufficiency, dyspnea, elevated troponin (1) Systolic CHF, acute on chronic ICD Code: I50.23 (2) Elevated troponin ICD Code: R77.8 (3) Renal insufficiency ICD Code: N28.9 (4) Ischemic cardiomyopathy ICD Code: I25.5 (5) Coronary artery disease ICD Code: I25.10 (6) Chronic obstructive pulmonary disease ICD Code: J44.9 Procedures None Brief History - From Admission 76-year-old male with a medical history significant for congestive heart failure with LVEF of 20-25% in 2014, coronary artery disease status post CABG, COPD, history of PE sent from a [facility] nursing facility for shortness of breath. Patient reports since yesterday he has been having severe shortness of breath. It persisted throughout the day and he was unable to sleep last night because he could not lay flat. He denies any chest pain. He reports that his health has been declining. He believes that he has been in the nursing facility since October. He endorsed a mild nonproductive cough. EMS reported room air saturation of 90% on arrival at the [facility]. CBC/BMP: 02/07/17 0645 02/08/17 0627 Significant Findings Laboratory Tests Test 02/05/17 02/05/17 02/05/17 02/06/17 09:54 16:06 22:06 06:00 Red Blood Count 3.52 MIL/MM3 3.46 MIL/MM3 (4.50-5.90) (4.50-5.90) Hemoglobin 9.9 GM/DL 9.6 GM/DL (13.0-17.0) (13.0-17.0) Hematocrit 30.3 % 29.9 % (39.0-51.0) (39.0-51.0) Basophils (%) (Auto) 4.4 % (0.0-2.0) Basophils # (Auto) 0.3 TH/MM3 (0-0.2) Prothrombin Time 58.4 SEC 75.9 SEC (9.8-11.6) (9.8-11.6) Activated Partial 54.8 SEC Thromboplast Time (24.3-30.1) Chloride Level 109 MEQ/L (98-107) Blood Urea Nitrogen 35 MG/DL (7-18) 38 MG/DL (7-18) Creatinine 2.30 MG/DL 2.30 MG/DL (0.60-1.30) (0.60-1.30) Estimat Glomerular Filtration 28 ML/MIN (>89) 28 ML/MIN (>89) Rate Random Glucose 119 MG/DL 145 MG/DL (74-106) (74-106) Troponin I 0.26 NG/ML 0.25 NG/ML 0.22 NG/ML (0.02-0.05) (0.02-0.05) (0.02-0.05) B-Type Natriuretic Peptide 1063 PG/ML (0-100) Albumin 3.3 GM/DL (3.4-5.0) Prothromb Time International 6.3 RATIO Ratio Potassium Level 3.4 MEQ/L (3.5-5.1) Test 02/07/17 02/08/17 06:45 06:27 Red Blood Count 3.27 MIL/MM3 (4.50-5.90) Hemoglobin 9.2 GM/DL (13.0-17.0) Hematocrit 27.9 % (39.0-51.0) Prothrombin Time 53.7 SEC 29.8 SEC (9.8-11.6) (9.8-11.6) Blood Urea Nitrogen 44 MG/DL (7-18) 49 MG/DL (7-18) Creatinine 2.40 MG/DL 2.30 MG/DL (0.60-1.30) (0.60-1.30) Estimat Glomerular Filtration 26 ML/MIN (>89) 28 ML/MIN (>89) Rate Random Glucose 108 MG/DL (74-106) Potassium Level 3.3 MEQ/L (3.5-5.1) Imaging Last Impressions Chest X-Ray 02/05/17 0930 Signed Impressions: Service Date/Time: Sunday, February 05, 2017 09:40 - CONCLUSION: Worsening bibasilar airspace disease. Chet Suero MD PE at Discharge GENERAL: This is a well-nourished, well-developed patient, in no apparent distress. CARDIOVASCULAR: Distant heart sound, Regular rate and rhythm. No appreciable murmurs. RESPIRATORY: Faint bibasilar crackles, no longer wheezing. Rest of the lung keller clear to auscultation. GASTROINTESTINAL: Abdomen soft, non-tender, non-distended. Normal active bowel sounds MUSCULOSKELETAL: Extremities without cyanosis, or edema. NEURO: Alert & Oriented x4 to person, place, time, situation. Moves all ext x4 PSYCH: Appropriate mood and affect. Pt update on day of discharge Patient reports he is feeling great. Currently on room air, breathing comfortably. No chest pain. He can go back to the [facility] with home health care. Hospital Course 76-year-old male with history of coronary artery disease status post CABG, COPD , severe CHF with EF of 25% admitted for acute systolic CHF exacerbation and respiratory failure. Evaluation and treatment course detailed below: Respiratory failure: Combination of acute CHF and probable COPD exacerbation. Chest x-ray image reviewed, bibasilar airspace disease. Patient with wheezing on admission. - Patient was treated for CHF and steroids, breathing treatments for probable COPD exacerbation. - Supplemental oxygen, breathing treatments. Respiratory status improved. Patient was weaned down to room air. Acute systolic CHF exacerbation: BNP 1000 on admission. Chest x-ray consistent with heart failure. LVEF is 25-30%. - Initially treated with IV diuretics. Switch to oral Lasix, 40 mg daily. Patient was sent home on the same dose. - Strict I/O. Fluid restrict to 1800 cc per 24 hours - Resume Coreg. Lisinopril resumed at a lower dose due to borderline blood pressure. Acute renal failure: May be secondary to heart failure as above. Renal function stabilized but did not return to normal. Unclear if he has chronic kidney disease at this point. - May be secondary to diuretics. -Outpatient follow-up is advised. Elevated troponin: Trended down. Likely secondary to CHF exacerbation and in renal failure. EKG reviewed. Sinus bradycardia. No acute ST changes compared to prior. - Aspirin daily. Resume Coreg. Probable COPD exacerbation: Patient is wheezing on exam with worsening shortness of breath. - Short course of prednisone 40 mg daily while in the hospital. Respiratory status markedly improved. Steroid discontinued -Continue regular breathing treatments at home. Hypokalemia: Replace. Check mag. History of PE. Patient is on Coumadin. He presented with supratherapeutic INR. He received azithromycin in the ED. Coumadin was held. INR trended back down to therapeutic range. Resume Coumadin on discharge. Advise outpatient follow-up Pt Condition on Discharge: Stable Discharge Disposition: [facility] with [facility] Discharge Time: > 30 minutes Discharge Instructions DIET: Follow Instructions for: Heart Healthy Diet Fluid Restrictions: 1800 ml/24hrs Activities you can perform: Regular-No Restrictions Follow up Referrals: PCP Follow-up - 1 Week SNF/[facility]/ with [facility] Home New Medications: Potassium Chloride ER (Potassium Chloride ER) 20 Meq Tab 20 MEQ PO DAILY Electrolyte Replacement #30 Ref 0 TAB Changed Medications: Furosemide (Furosemide) 40 Mg Tab 40 MG PO DAILY #30 Ref 0 TAB (Changed from: Furosemide 20 Mg Tab 20 Mg PO DAILY #30 TAB Ref 0) Lisinopril (Lisinopril) 2.5 Mg Tab 2.5 MG PO DAILY #30 Ref 0 TAB (Changed from: Lisinopril 5 Mg Tab 5 Mg PO DAILY #30 TAB Ref 0) Continued Medications: Albuterol 6.7 GM Inh (Proventil Hfa 6.7 GM Inh) 90 Mcg/Act Aer 1 PUFF INH Q4H PRN SHORTNESS OF BREATH #1 Ref 0 INHALER (This prescription has been renewed) Carvedilol (Carvedilol) 3.125 Mg Tab 3.125 MG PO BID #60 Ref 0 TAB Hydroxyzine HCl (Hydroxyzine HCl) 25 Mg Tab 25 MG PO QID PRN ANXIETY Ref 0 TAB Ipratropium-Albuterol Neb (Duoneb) 0.5-2.5 Mg/3 Ml Neb 1 NEBULE INH BID Breathing Treatment #30 Ref 0 NEBULE (This prescription has been renewed) Levothyroxine (Levothyroxine) 50 Mcg Tab 50 MCG PO DAILY Thyroid #30 Ref 0 TAB Loperamide (Loperamide) 2 Mg Tab 2 MG PO DIRECTED One tablet after each loose stool. Not to exceed 8 tablets per day. PRN DIARRHEA Ref 0 TAB Mirtazapine (Mirtazapine) 15 Mg Tab 15 MG PO HS Depression Control #30 Ref 0 TAB Multiple Vitamins W/ Minerals (Multivitamin Adults) 1 Tab 1 TAB PO DAILY Nutritional Supplement Ref 0 TAB Ranitidine (Ranitidine) 150 Mg Tab 150 MG PO DAILY Heartburn Management #30 Ref 0 TAB Sertraline (Sertraline) 50 Mg Tab 75 MG PO DAILY #30 Ref 0 TAB Sucralfate (Sucralfate) 1 Gm Tab 1 GM PO BID on empty stomach Duodenal ulcer #120 Ref 0 TAB Warfarin (Warfarin) 6 Mg Tab 7 MG PO DAILY Blood Clot Prevention #30 Ref 0 TAB Jhoan Webb MD February 08, 2017 09:11
--- NOTE | 2017-02-08 09:11 | HHI.FF ---
Face to Face Verification Diagnosis: (1) Systolic CHF, acute on chronic (2) Chronic obstructive pulmonary disease (3) Gait instability (4) History of pulmonary embolism (5) Hypertension (6) Renal insufficiency (7) Coronary artery disease Physical Therapy Order: Evaluate and Treat, Improve ambulation, Strength and gait training Home Health Nursing Order: Medical education Signs/symptoms of disease process CHF education Medication education-adverse effect Nursing assessment with vital signs I have seen patient Ghazala Reed on 02/08/17. My clinical findings support the need for the requested home health care services because: Patient has SOB Med compliance is questionable Limited ability to care for self High risk of falls I certify that my clinical findings support that this patient is homebound because: Hx COPD- exertion dyspnea/weakness Need for psychosocial assistance Poor cardiac reserve Jhoan Webb MD February 08, 2017 09:11
[2017-02-08] MEDS ORDERED: POTASSIUM CHLORIDE 10 MEQ CONTROLLED RELEASE TAB PO ONE (09:15)
[2017-02-08] MEDS ORDERED: POTA-163 PO (09:23)
[2017-02-08] MEDS ORDERED: MAGNESIUM HYDROXIDE SUSP 30 ML CUP PO ONE (10:15)
[2017-02-08] MEDS ORDERED: WARFARIN SOD 5 MG TAB PO SCH (16:00)
== END 2017-02-08 15:40 | DRG 291 ==
LOC: PHED 09:02 → PHEDA 11:10 → PH3A 12:25
PROVIDERS: ADMIT Family Medicine; ATTEND Family Medicine
DX: I50.23 Acute on chronic systolic (congestive) heart failure (principal); J96.90 Respiratory failure, unspecified, unspecified whether with hypoxia or hypercapnia; N17.9 Acute kidney failure, unspecified; J44.1 Chronic obstructive pulmonary disease with (acute) exacerbation; I25.5 Ischemic cardiomyopathy; Z95.1 Presence of aortocoronary bypass graft; I25.10 Atherosclerotic heart disease of native coronary artery without angina pectoris; R74.8 Abnormal levels of other serum enzymes; Z86.711 Personal history of pulmonary embolism; E87.6 Hypokalemia; Z79.01 Long term (current) use of anticoagulants; Z87.891 Personal history of nicotine dependence
CPT/HCPCS: 51702; 71010; 80048; 80053; 82550; 82552; 83880; 84484; 85025; 85027; 85610; 85730; 87040; 87804; 93005; 93306; 94620; 94640; 94664; 96365; 96375; J0456; J0696; J1940; J2930; J7050; J7512

== ENCOUNTER 2017-07-06 07:14 | Inpatient (IN) | payer MEDICARE, BC ==
[2017-07-06] VITALS (11 sets, daily range): BP systolic 113–133; BP diastolic 72–84; PULSE 64–89; RESP 20–22; TEMP 97.2–98.1; O2SAT 88–100
[~2017-07-06] VITALS: Ht 177.8 cm; Wt 66.3 kg
[~2017-07-06 07:14] MED LIST changes: -ASPI81 PO; +CARV3.12 PO; -CARV3.125 PO; -CITA20 PO; -DUONI NEB; -FURO20 PO; +FURO40TA PO; +HYDR-3133 PO; -HYDRO25 PO; +IPRASOL INH; +LEVO50TA4 PO; -LISI10 PO; +LISI2.5T3 PO; +LOPE2TAB3 PO; -METF850 PO; +MULT1TAB84 PO; +POTA-163 PO; -PRED5 PO; +SERT-132 PO; +SUCR1TAB PO; -TAB-TAB PO; -WALKER ROLLING; +WARF-60 PO; -WARF7.5 PO
--- NOTE | 2017-07-06 07:29 | PD ---
HPI Chief Complaint: shortness of breath Time Seen by Provider: 07:21 Travel History International Travel<30 days: No Contact w/Intl Traveler<30days: No Traveled to known affect area: No History of Present Illness HPI 77-year-old male jail patient with history of multiple medical issues, presents to the ER today brought in by EMS for shortness of breath starting this morning according to staff. He was initially found to be in moderate respiratory distress with crackles or wheezing throughout according to EMS, was initiated on Lasix, nitroglycerin, and put on BiPAP with some improvement in symptoms. Patient still is short of breath, does not feel like it is much better. He denies any chest pains, fevers, or other issues. Modifying Factors: None Associated Signs & Symptoms: Shortness of breath Risk Factors: Elderly, CHF history PFSH Past Medical History Arthritis: Yes Depression: Yes Heart Rhythm Problems: No Cancer: Yes (SKIN, NOSE) Cardiovascular Problems: Yes (OPEN HEART SX) High Cholesterol: Yes Congestive Heart Failure: No COPD: Yes Cerebrovascular Accident: No Diabetes: No Diminished Hearing: No Deep Vein Thrombosis: Yes (pe) Endocrine: Yes Gastrointestinal Disorders: Yes (COLOSTOMY AND REVERSAL, COLON RESECTION?) Genitourinary: No Hypertension: Yes Implanted Vascular Access Dvce: No Musculoskeletal: No Neurologic: No Psychiatric: No Reproductive: No Respiratory: Yes (COPD) Myocardial Infarction: Yes Seizures: No Sleep Apnea: Yes Thyroid Disease: Yes (RESOLVED) Past Surgical History Abdominal Surgery: Yes (COLOSTOMY AND REVERSAL, COLON RESECTION) Cardiac Surgery: Yes (QUAD BYPASS MAY 2007) Coronary Artery Bypass Graft: Yes (4 WAY BYPASS [place] 2006) Other Surgery: Yes Social History Alcohol Use: Yes (OCCASIONALLY) Tobacco Use: No Substance Use: No Allergies-Medications (Allergen,Severity, Reaction): Coded Allergies: No Known Allergies (Verified , 07/22/15) Reported Meds & Prescriptions Reported Meds & Active Scripts Active Potassium Chloride ER (Potassium Chloride) 20 Meq Tab 20 Meq PO DAILY Lisinopril 2.5 Mg Tab 2.5 Mg PO DAILY Furosemide 40 Mg Tab 40 Mg PO DAILY Proventil Hfa 6.7 GM Inh (Albuterol Sulfate) 90 Mcg/Act Aer 1 Puff INH Q4H PRN Duoneb (Ipratropium-Albuterol Neb) 0.5-2.5 Mg/3 Ml Neb 1 Nebule INH BID Reported Multivitamin Adults (Multiple Vitamins W/ Minerals) 1 Tab 1 Tab PO DAILY Carvedilol 3.125 Mg Tab 3.125 Mg PO BID Ranitidine (Ranitidine HCl) 150 Mg Tab 150 Mg PO DAILY Mirtazapine 15 Mg Tab 15 Mg PO HS Hydroxyzine HCl 25 Mg Tab 25 Mg PO QID PRN Loperamide (Loperamide HCl) 2 Mg Tab 2 Mg PO DIRECTED PRN One tablet after each loose stool. Not to exceed 8 tablets per day. Warfarin 6 Mg Tab 7 Mg PO DAILY Levothyroxine (Levothyroxine Sodium) 50 Mcg Tab 50 Mcg PO DAILY Sucralfate 1 Gm Tab 1 Gm PO BID on empty stomach Sertraline (Sertraline HCl) 50 Mg Tab 75 Mg PO DAILY Review of Systems Except as stated in HPI: all other systems reviewed are Neg Physical Exam Narrative GENERAL: Well-developed elderly white male patient currently in mild respiratory distress, currently on BiPAP. Awake, lethargic, able to answer with yes and no but having difficulty speaking. SKIN: Focused skin assessment warm/dry. HEAD: Atraumatic. Normocephalic. EYES: Pupils equal and round. No scleral icterus. No injection or drainage. ENT: No nasal bleeding or discharge. Mucous membranes pink and moist. NECK: Trachea midline. No JVD. CARDIOVASCULAR: Regular rate and rhythm. No murmur appreciated. RESPIRATORY: No accessory muscle use. Decreased throughout. Breath sounds equal bilaterally. GASTROINTESTINAL: Abdomen soft, non-tender, nondistended. Hepatic and splenic margins not palpable. MUSCULOSKELETAL: No obvious deformities. No clubbing. No cyanosis. No edema. NEUROLOGICAL: Awake and alert. No obvious cranial nerve deficits. Motor grossly within normal limits. Normal speech. PSYCHIATRIC: Appropriate mood and affect; insight and judgment normal. Data Data Last Documented VS Vital Signs Date Time Temp Pulse Resp B/P (MAP) Pulse Ox O2 Delivery O2 Flow Rate FiO2 07/06/17 07:42 94 CPAP 50 07/06/17 07:22 97.2 76 22 133/80 (97) Orders Orders Complete Blood Count With Diff (07/06/17 07:21) Comprehensive Metabolic Panel (07/06/17 07:21) B-Type Natriuretic Peptide (07/06/17 07:21) Act Partial Throm Time (Ptt) (07/06/17 07:21) Prothrombin Time / Inr (Pt) (07/06/17 07:21) Ckmb (Isoenzyme) Profile (07/06/17 07:21) Troponin I (07/06/17 07:21) Blood Culture (07/06/17 07:21) Iv Access Insert/Monitor (07/06/17 07:21) Electrocardiogram (07/06/17 07:21) Ecg Monitoring (07/06/17 07:21) Oximetry (07/06/17:21) Oxygen Administration (07/06/17 07:21) Chest, Single Ap (07/06/17 07:21) Urinary Catheter Insert/Apply (07/06/17 07:21) Sodium Chloride 0.9% Flush (Ns Flush) (07/06/17 07:30) Resp Bipap / Cpap Non Invas Vt (07/06/17 07:21) Vital Signs (Adult) CRISTHIAN.Q4H (07/06/17 09:14) Sodium Chloride 0.9% Flush (Ns Flush) (07/06/17 09:15) Sodium Chloride 0.9% Flush (Ns Flush) (07/06/17 21:00) Admit Order (Ed Use Only) (07/06/17 09:14) Labs Laboratory Tests Test 07/06/17 07:45 White Blood Count 7.7 TH/MM3 Red Blood Count 3.84 MIL/MM3 Hemoglobin 10.6 GM/DL Hematocrit 33.0 % Mean Corpuscular Volume 85.9 FL Mean Corpuscular Hemoglobin 27.6 PG Mean Corpuscular Hemoglobin Concent 32.1 % Red Cell Distribution Width 18.5 % Platelet Count 318 TH/MM3 Mean Platelet Volume 7.5 FL Neutrophils (%) (Auto) 71.1 % Lymphocytes (%) (Auto) 20.1 % Monocytes (%) (Auto) 4.1 % Eosinophils (%) (Auto) 3.6 % Basophils (%) (Auto) 1.1 % Neutrophils # (Auto) 5.4 TH/MM3 Lymphocytes # (Auto) 1.5 TH/MM3 Monocytes # (Auto) 0.3 TH/MM3 Eosinophils # (Auto) 0.3 TH/MM3 Basophils # (Auto) 0.1 TH/MM3 CBC Comment DIFF FINAL Differential Comment Prothrombin Time 12.4 SEC Prothromb Time International Ratio 1.1 RATIO Activated Partial Thromboplast Time 29.0 SEC Blood Urea Nitrogen 21 MG/DL Creatinine 1.81 MG/DL Random Glucose 162 MG/DL Total Protein 7.2 GM/DL Albumin 2.5 GM/DL Calcium Level 8.1 MG/DL Alkaline Phosphatase 179 U/L Aspartate Amino Transf (AST/SGOT) 10 U/L Alanine Aminotransferase (ALT/SGPT) 14 U/L Total Bilirubin 0.4 MG/DL Sodium Level 140 MEQ/L Potassium Level 4.1 MEQ/L Chloride Level 106 MEQ/L Carbon Dioxide Level 26.1 MEQ/L Anion Gap 8 MEQ/L Estimat Glomerular Filtration Rate 36 ML/MIN Total Creatine Kinase 34 U/L Troponin I 0.19 NG/ML B-Type Natriuretic Peptide 2013 PG/ML [facility] Medical Decision Making Medical Screen Exam Complete: Yes Emergency Medical Condition: Yes Medical Record Reviewed: Yes Interpretation(s) EKG shows normal sinus rhythm with occasional PVCs at a rate of 77 bpm. No signs of acute ST-T changes. Laboratory Tests Test 07/06/17 07:45 Red Blood Count 3.84 MIL/MM3 (4.50-5.90) Hemoglobin 10.6 GM/DL (13.0-17.0) Hematocrit 33.0 % (39.0-51.0) Red Cell Distribution Width 18.5 % (11.6-17.2) Neutrophils (%) (Auto) 71.1 % (16.0-70.0) Prothrombin Time 12.4 SEC (9.8-11.6) Blood Urea Nitrogen 21 MG/DL (7-18) Creatinine 1.81 MG/DL (0.60-1.30) Random Glucose 162 MG/DL (74-106) Albumin 2.5 GM/DL (3.4-5.0) Calcium Level 8.1 MG/DL (8.5-10.1) Alkaline Phosphatase 179 U/L (45-117) Aspartate Amino Transf (AST/SGOT) 10 U/L (15-37) Estimat Glomerular Filtration Rate 36 ML/MIN (>89) Total Creatine Kinase 34 U/L (39-308) Troponin I 0.19 NG/ML (0.02-0.05) B-Type Natriuretic Peptide 2014 PG/ML (0-100) Last 24 hours Impressions Chest X-Ray 07/06/17 0721 Signed Impressions: Service Date/Time: Thursday, July 06, 2017 08:12 - CONCLUSION: Radiographic pattern suggesting intra-alveolar pulmonary edema with bilateral pleural effusions. Ray Garza Jr., MD Differential Diagnosis Shortness of breath: CHF versus pneumonia versus COPD Narrative Course Chest x-ray and lab work indicative of underlying CHF. He is appearing more stable with improvement in breathing while on BiPAP in the ER. At this point, plan would be to admit the patient for further treatment. Case is discussed with family practice resident service for admission. Diagnosis Primary Impression: CHF exacerbation Admitting Information Admitting Physician Requests: Admit Dank Al MD Jul 06, 2017 07:29
[2017-07-06] MEDS ORDERED: SODIUM CHLORIDE 0.9% FLUSH 10 ML FLUSH IVF PRN (07:30)
[2017-07-06 08:08] LABS: AUTOMATED NEUTROPHIL # 5.4 TH/MM3 (1.8-7.7); BASOPHIL # 0.1 TH/MM3 (0-0.2); BASOPHIL % 1.1 % (0.0-2.0); EOSINOPHIL # 0.3 TH/MM3 (0-0.4); EOSINOPHIL % 3.6 % (0.0-4.0); HEMO FLAGS DIFF FINAL; LYMPH % 20.1 % (9.0-44.0); LYMPHOCYTE # 1.5 TH/MM3 (1.0-4.8); MEAN CELL VOLUME 85.9 FL (80.0-100.0); MEAN CORPUSCULAR HEMOGLOBIN 27.6 PG (27.0-34.0); MEAN CORPUSCULAR HGB CONC 32.1 % (32.0-36.0); MONO % 4.1 % (0.0-8.0); NEUT % 71.1 % (16.0-70.0); PLATELET COUNT 318 TH/MM3 (150-450); RED BLOOD COUNT 3.84 MIL/MM3 (4.50-5.90); RED CELL DISTRIBUTION WIDTH 18.5 % (11.6-17.2); WHITE BLOOD COUNT 7.7 TH/MM3 (4.0-11.0)
[2017-07-06 08:16] LABS: INTERNATIONAL NORMALIZED RATIO 1.1 RATIO; PROTHROMBIN TIME - PATIENT 12.4 SEC (9.8-11.6)
[2017-07-06 08:22] LABS: ALT (GPT) 14 U/L (12-78); ANION GAP 8 MEQ/L (5-15); AST (GOT) 10 U/L (15-37); BICARBONATE 26.1 MEQ/L (21.0-32.0); BLOOD UREA NITROGEN 21 MG/DL (7-18); CHLORIDE 106 MEQ/L (98-107); GLOMERULAR FILTRATION RATE 36 ML/MIN (>89); POTASSIUM 4.1 MEQ/L (3.5-5.1); SODIUM (NA) 140 MEQ/L (136-145)
--- NOTE | 2017-07-06 08:22 | RADRPT ---
EXAM DATE/TIME: 07/06/2017 08:12 [facility] COMPARISON: CHEST SINGLE AP, February 05, 2017, 9:40. INDICATIONS : Shortness of breath. MEDICAL HISTORY : None. SURGICAL HISTORY : CABG. ENCOUNTER: Initial ACUITY: 1 day PAIN SCORE: 0/10 LOCATION: Bilateral chest FINDINGS: A single portable frontal view of the chest shows pulmonary vascular engorgement. Bilateral pleural e ffusions and bibasilar intra-alveolar infiltrates. The heart is normal in size. Median sternotomy wir es noted. CONCLUSION: Radiographic pattern suggesting intra-alveolar pulmonary edema with bilateral pleural effusions. Ray Garza Jr., MD on July 06, 2017 at 8:18 Board Certified Radiologist. This report was verified electronically.
[2017-07-06 08:26] LABS: ALKALINE PHOSPHATASE 179 U/L (45-117); TOTAL BILIRUBIN ADULT 0.4 MG/DL (0.2-1.0)
[2017-07-06 08:29] LABS: CREATINE KINASE 34 U/L (39-308)
[2017-07-06] MEDS ORDERED: SODIUM CHLORIDE 0.9% FLUSH 10 ML FLUSH IV FLUSH PRN (09:15)
--- NOTE | 2017-07-06 09:16 | HHI.HP ---
[facility] Service Family Medicine Primary Care Physician Stas Donovan Juany Admission Diagnosis Diagnoses: International Travel<30 Days: No Contact w/Intl Traveler<30days: No Known Affected Area: No History of Present Illness SOB since yesterday, wakes up SOB, doesnt bother lying flight, no change in cough (occasional cough) or productive sputum, "feels swollen", not on 02 Rehab in [place] since admission in January Pain with urination 77-year-old male halfway patient with history of multiple medical issues, presents to the ER today brought in by EMS for shortness of breath starting this morning according to staff. He was initially found to be in moderate respiratory distress with crackles or wheezing throughout according to EMS, was initiated on Lasix, nitroglycerin, and put on BiPAP with some improvement in symptoms. Patient still is short of breath, does not feel like it is much better. He denies any chest pains, fevers, or other issues. Modifying Factors: None Associated Signs & Symptoms: Shortness of breath Risk Factors: Elderly, CHF history Past Family Social History Past Medical History Past Medical History Coronary artery disease status post CABG CHF, LVEF of 20-25% in 2015 COPD Depression Past Surgical History CABG Colon resection, colostomy and reversal Allergies: Coded Allergies: No Known Allergies (Verified , 07/22/15) Physical Exam Vital Signs Vital Signs Date Time Temp Pulse Resp B/P (MAP) Pulse Ox O2 Delivery O2 Flow Rate FiO2 07/06/17 07:42 94 CPAP 50 07/06/17 07:41 94 CPAP 50 07/06/17 07:35 95 50 07/06/17 07:22 97.2 76 22 133/80 (97) 88 Physical Exam GENERAL: This is a well-nourished, well-developed patient, in no apparent distress. SKIN: No rashes, ecchymoses or lesions. Cool and dry. HEAD: Atraumatic. Normocephalic. No temporal or scalp tenderness. EYES: Pupils equal round and reactive. Extraocular motions intact. No scleral icterus. No injection or drainage. ENT: Nose without bleeding, purulent drainage or septal hematoma. Throat without erythema, tonsillar hypertrophy or exudate. Uvula midline. Airway patent. NECK: Trachea midline. No JVD or lymphadenopathy. Supple, nontender, no meningeal signs. CARDIOVASCULAR: Regular rate and rhythm without murmurs, gallops, or rubs. RESPIRATORY: Clear to auscultation. Breath sounds equal bilaterally. No wheezes , rales, or rhonchi. GASTROINTESTINAL: Abdomen soft, non-tender, nondistended. No hepato-splenomegaly , or palpable masses. No guarding. MUSCULOSKELETAL: Extremities without clubbing, cyanosis, or edema. No joint tenderness, effusion, or edema noted. No calf tenderness. Negative Homans sign bilaterally. NEUROLOGICAL: Awake and alert. Cranial nerves II through XII intact. Motor and sensory grossly within normal limits. Five out of 5 muscle strength in all muscle groups. Normal speech. Laboratory Laboratory Tests Test 07/06/17 07:45 White Blood Count 7.7 Red Blood Count 3.84 Hemoglobin 10.6 Hematocrit 33.0 Mean Corpuscular Volume 85.9 Mean Corpuscular Hemoglobin 27.6 Mean Corpuscular Hemoglobin Concent 32.1 Red Cell Distribution Width 18.5 Platelet Count 318 Mean Platelet Volume 7.5 Neutrophils (%) (Auto) 71.1 Lymphocytes (%) (Auto) 20.1 Monocytes (%) (Auto) 4.1 Eosinophils (%) (Auto) 3.6 Basophils (%) (Auto) 1.1 Neutrophils # (Auto) 5.4 Lymphocytes # (Auto) 1.5 Monocytes # (Auto) 0.3 Eosinophils # (Auto) 0.3 Basophils # (Auto) 0.1 CBC Comment DIFF FINAL Differential Comment Prothrombin Time 12.4 Prothromb Time International Ratio 1.1 Activated Partial Thromboplast Time 29.0 Blood Urea Nitrogen 21 Creatinine 1.81 Random Glucose 162 Total Protein 7.2 Albumin 2.5 Calcium Level 8.1 Alkaline Phosphatase 179 Aspartate Amino Transf (AST/SGOT) 10 Alanine Aminotransferase (ALT/SGPT) 14 Total Bilirubin 0.4 Sodium Level 140 Potassium Level 4.1 Chloride Level 106 Carbon Dioxide Level 26.1 Anion Gap 8 Estimat Glomerular Filtration Rate 36 Total Creatine Kinase 34 Troponin I 0.19 B-Type Natriuretic Peptide 2013 Date/Time Source Procedure Growth Status 07/06/17 07:45 Blood Peripheral Aerobic Blood Culture Pending Received 07/06/17 07:45 Blood Peripheral Anaerobic Blood Culture Pending Received Result Diagram: 07/06/1745 07/06/17744 Caprini VTE Risk Assessment Caprini Risk Assessment Model Point Value = 1 Point Value = 2 Point Value = 3 Point Value = 5 Age 41-60 Minor surgery BMI > 25 kg/m2 Swollen legs Varicose veins or History of unexplained or recurrent spontaneous Oral contraceptives or hormone replacement Sepsis (< 1 month) Serious lung disease, including pneumonia (< 1 month) Abnormal pulmonary function Acute myocardial infarction Congestive heart failure (< 1 month) History of inflammatory bowel disease Medical patient at bed rest Age 61-74 Arthroscopic surgery Major open surgery (> 45 min) Laparoscopic surgery (> 45 min) Malignancy Confined to bed (> 72 hours) Immobilizing plaster cast Central venous access Age >= 75 History of VTE Family history of VTE Factor V Leiden Prothrombin [id number] Lupus anticoagulant Anticardiolipin antibodies Elevated serum homocysteine Heparin-induced thrombocytopenia Other congenital or acquired thrombophilia Stroke (< 1 month) Elective arthroplasty Hip, pelvis, or leg fracture Acute spinal cord injury (< 1 month) Prophylaxis Regimen Total Risk Factor Score Risk Level Prophylaxis Regimen 0-1 Low Early ambulation 2 Moderate Order ONE of the following: *Sequential Compression Device (SCD) *Heparin 5000 units SQ BID 3-4 Higher Order ONE of the following medications: *Heparin 5000 units SQ TID *Enoxaparin/Lovenox 40 mg SQ daily (WT < 150 kg, CrCl > 30 mL/min) *Enoxaparin/Lovenox 30 mg SQ daily (WT < 150 kg, CrCl > 10-29 mL/min) *Enoxaparin/Lovenox 30 mg SQ BID (WT < 150 kg, CrCl > 30 mL/min) AND/OR *Sequential Compression Device (SCD) 5 or more Highest Order ONE of the following medications: *Heparin 5000 units SQ TID (Preferred with Epidurals) *Enoxaparin/Lovenox 40 mg SQ daily (WT < 150 kg, CrCl > 30 mL/min) *Enoxaparin/Lovenox 30 mg SQ daily (WT < 150 kg, CrCl > 10-29 mL/min) *Enoxaparin/Lovenox 30 mg SQ BID (WT < 150 kg, CrCl > 30 mL/min) AND *Sequential Compression Device (SCD) Radha Rivera MD R2 Jul 06, 2017 09:16
[2017-07-06] MEDS ORDERED: hydrOXYzine HCL 25 MG TAB PO PRN (10:00)
[2017-07-06] MEDS ORDERED: ALBUTEROL SULFATE 90 MCG/ACT HFA 8 GM INHALER INH PRN (10:00)
[2017-07-06] MEDS ORDERED: LOPERAMIDE HCL 2 MG CAP PO PRN (10:00)
[2017-07-06] MEDS ORDERED: WARFARIN SOD 6 MG TAB PO SCH (10:00)
[2017-07-06] MEDS ORDERED: RESP: ALBUTEROL 2.5 MG/3 ML NEB (PRN) INH (10:00)
--- NOTE | 2017-07-06 10:40 | HHI.HP ---
HPI Service Family Medicine Primary Care Physician [facility] Admission Diagnosis Diagnoses: International Travel<30 Days: No Contact w/Intl Traveler<30days: No Known Affected Area: No History of Present Illness 77-year-old male with past medical history of CHF with ejection fraction of 20% , coronary artery disease status post CABG, COPD, and history of PE, presents with shortness of breath 1 day.Patient is brought in via [facility] from his rehabilitation Center in [place] for increased shortness of breath since yesterday. He patient was reportedly fine earlier in the week and began to feel shortness of breath yesterday. He states he has not had any increase in coughing or productive sputum. He has not had any fevers/chills. He denies any difficulty breathing when he lays down, however he does state that he wakes up multiple times in the night because he is short of breath. Patient does say that he feels increased swelling. He has been on oxygen at his rehabilitation center but does not know how much. He does experience pain with urination In the ED the patient has been put on BiPAP and he states he does not feel any improvement yet. (Radha Rivera MD R2) Review of Systems ROS Limitations: Clinical Condition, Altered Mental Status, Uncooperative, Hearing Impaired, Speech Impaired, Poor Historian (history is difficult to obtain while patient is on BiPAP and has difficulty understanding and responding ) Constitutional: COMPLAINS OF: Diaphoretic episodes (Radha Rivera MD R2) Past Family Social History Past Medical History Past Medical History Coronary artery disease status post CABG CHF, LVEF of 20-25% in 2015 COPD Depression Past Surgical History CABG Colon resection, colostomy and reversal (Radha Rivera MD R2) Allergies: Coded Allergies: No Known Allergies (Verified , 07/22/15) Physical Exam Vital Signs Vital Signs Date Time Temp Pulse Resp B/P (MAP) Pulse Ox O2 Delivery O2 Flow Rate FiO2 07/06/17 07:42 94 CPAP 50 07/06/17 07:41 94 CPAP 50 07/06/17 07:35 95 50 07/06/17 07:22 97.2 76 22 133/80 (97) 88 Physical Exam GENERAL: This is a well-nourished, well-developed patient, in no apparent distress. SKIN: No rashes, ecchymoses or lesions. Cool and dry. sacral ulcer stage 1, erythematous HEAD: Atraumatic. Normocephalic. No temporal or scalp tenderness. EYES: Pupils equal round and reactive. Extraocular motions intact. No scleral icterus. No injection or drainage. ENT: Nose without bleeding, purulent drainage or septal hematoma. Throat without erythema, tonsillar hypertrophy or exudate. Uvula midline. Airway patent. NECK: Trachea midline. No JVD or lymphadenopathy. Supple, nontender, no meningeal signs. CARDIOVASCULAR: Regular rate and rhythm without murmurs, gallops, or rubs. RESPIRATORY: Clear to auscultation. Breath sounds equal bilaterally. No wheezes , rales, or rhonchi. GASTROINTESTINAL: Abdomen soft, non-tender, nondistended. No hepato-splenomegaly , or palpable masses. No guarding. MUSCULOSKELETAL: Extremities without clubbing, cyanosis, or edema. No joint tenderness, effusion, or edema noted. No calf tenderness. Negative Homans sign bilaterally. NEUROLOGICAL: Awake and alert. Cranial nerves II through XII intact. Motor and sensory grossly within normal limits. Five out of 5 muscle strength in all muscle groups. Normal speech. Rectal: dark brown stool, hemoccult negative Laboratory Laboratory Tests Test 07/06/17 07:45 07/06/17 09:50 White Blood Count 7.7 Red Blood Count 3.84 Hemoglobin 10.6 Hematocrit 33.0 Mean Corpuscular Volume 85.9 Mean Corpuscular Hemoglobin 27.6 Mean Corpuscular Hemoglobin Concent 32.1 Red Cell Distribution Width 18.5 Platelet Count 318 Mean Platelet Volume 7.5 Neutrophils (%) (Auto) 71.1 Lymphocytes (%) (Auto) 20.1 Monocytes (%) (Auto) 4.1 Eosinophils (%) (Auto) 3.6 Basophils (%) (Auto) 1.1 Neutrophils # (Auto) 5.4 Lymphocytes # (Auto) 1.5 Monocytes # (Auto) 0.3 Eosinophils # (Auto) 0.3 Basophils # (Auto) 0.1 CBC Comment DIFF FINAL Differential Comment Prothrombin Time 12.4 Prothromb Time International Ratio 1.1 Activated Partial Thromboplast Time 29.0 Blood Urea Nitrogen 21 Creatinine 1.81 Random Glucose 162 Total Protein 7.2 Albumin 2.5 Calcium Level 8.1 Alkaline Phosphatase 179 Aspartate Amino Transf (AST/SGOT) 10 Alanine Aminotransferase (ALT/SGPT) 14 Total Bilirubin 0.4 Sodium Level 140 Potassium Level 4.1 Chloride Level 106 Carbon Dioxide Level 26.1 Anion Gap 8 Estimat Glomerular Filtration Rate 36 Total Creatine Kinase 34 Troponin I 0.19 B-Type Natriuretic Peptide 2013 Date/Time Source Procedure Growth Status 07/06/17 07:45 Blood Peripheral Aerobic Blood Culture Pending Received 07/06/17 07:45 Blood Peripheral Anaerobic Blood Culture Pending Received (Radha Rivera MD R2) Result Diagram: 07/06/1745 07/06/1745 Caprini VTE Risk Assessment Caprini VTE Risk Assessment: Mod/High Risk (score >= 2) Caprini Risk Assessment Model Point Value = 1 Point Value = 2 Point Value = 3 Point Value = 5 Age 41-60 Minor surgery BMI > 25 kg/m2 Swollen legs Varicose veins or History of unexplained or recurrent spontaneous Oral contraceptives or hormone replacement Sepsis (< 1 month) Serious lung disease, including pneumonia (< 1 month) Abnormal pulmonary function Acute myocardial infarction Congestive heart failure (< 1 month) History of inflammatory bowel disease Medical patient at bed rest Age 61-74 Arthroscopic surgery Major open surgery (> 45 min) Laparoscopic surgery (> 45 min) Malignancy Confined to bed (> 72 hours) Immobilizing plaster cast Central venous access Age >= 75 History of VTE Family history of VTE Factor V Leiden Prothrombin [id number] Lupus anticoagulant Anticardiolipin antibodies Elevated serum homocysteine Heparin-induced thrombocytopenia Other congenital or acquired thrombophilia Stroke (< 1 month) Elective arthroplasty Hip, pelvis, or leg fracture Acute spinal cord injury (< 1 month) Prophylaxis Regimen Total Risk Factor Score Risk Level Prophylaxis Regimen 0-1 Low Early ambulation 2 Moderate Order ONE of the following: *Sequential Compression Device (SCD) *Heparin 5000 units SQ BID 3-4 Higher Order ONE of the following medications: *Heparin 5000 units SQ TID *Enoxaparin/Lovenox 40 mg SQ daily (WT < 150 kg, CrCl > 30 mL/min) *Enoxaparin/Lovenox 30 mg SQ daily (WT < 150 kg, CrCl > 10-29 mL/min) *Enoxaparin/Lovenox 30 mg SQ BID (WT < 150 kg, CrCl > 30 mL/min) AND/OR *Sequential Compression Device (SCD) 5 or more Highest Order ONE of the following medications: *Heparin 5000 units SQ TID (Preferred with Epidurals) *Enoxaparin/Lovenox 40 mg SQ daily (WT < 150 kg, CrCl > 30 mL/min) *Enoxaparin/Lovenox 30 mg SQ daily (WT < 150 kg, CrCl > 10-29 mL/min) *Enoxaparin/Lovenox 30 mg SQ BID (WT < 150 kg, CrCl > 30 mL/min) AND *Sequential Compression Device (SCD) (Radha Rivera MD R2) Assessment and Plan Assessment and Plan 76-year-old male with history of coronary artery disease status post CABG, COPD , severe CHF with EF of 20% admitted for acute systolic CHF exacerbation Code Status Full code Discussed Condition With Dr. Moe (Radha Rivera MD R2) Attending Attestation THIS CASE WAS DISCUSSED WITH THE RESIDENT PHYSICIANS. I HAVE REVIEWED THE RECORD AND AGREE WITH THE ABOVE NOTE AND PLAN OF CARE WAS DISCUSSED. I HAVE AUTHORIZED THE ORDER FOR ADMISSION TO AN IN-PATIENT STATUS. (Beata Rodriguez MD) Problem List: (1) Elevated troponin ICD Codes: R74.8 - Abnormal levels of other serum enzymes Status: Chronic Plan: troponin 0.19 ACS protocol: f/u EKG x 3 f/u troponin x 3 (2) History of pulmonary embolism ICD Codes: Z86.711 - Personal history of pulmonary embolism Status: Resolved Plan: INR 1.1 Cont Warfarin home dosage Lovenox 30 (CKD stage 3) Will d/c lovenox when INR >2 (3) CKD (chronic kidney disease) stage 3, GFR 30-59 ml/min ICD Codes: N18.3 - Chronic kidney disease, stage 3 (moderate) Status: Chronic Plan: Creat 1.81 - Continue ACEi at this time - Continue lasix 40 IV BID at this time - f/u BMP at 3PM Baseline Creat 2.3 in 02/09 (4) CHF exacerbation ICD Codes: I50.9 - Heart failure, unspecified Status: Acute Plan: Combination of acute CHF and probable COPD exacerbation. pt seems improved s/p BIPAP - CXR: pulmonary edema, consistent with CHF - Treat CHF: diuresis with furosemide 40 IV BID - Last Echo in 01/2017: EF 20-25% - f/u Echo - Re-check BMP at 3PM - No steroid course for COPD at this time - Supplemental oxygen, breathing treatments - f/u CBC, BMP, BNP in AM - f/u lipid profile, HbA1c, TSH - f/u fingersticks (5) Chronic obstructive pulmonary disease ICD Codes: J44.9 - Chronic obstructive pulmonary disease, unspecified Status: Chronic Plan: breathing treatments (6) fen/ppx Status: Chronic Plan: fluids: PO only electrolytes: f/u BMP at 3PM nutrition:heart healthy diet gippx: cont sucralfate 1g BID dvt ppx: resume warfarin 7mg daily, lovenox 30 now for bridge until INR >2 (Radha Rivera MD R2) Physician Certification 2 Midnight Certification Type: Admission for Inpatient Services Order for Inpatient Services The services are ordered in accordance with Medicare regulations or non- Medicare payer requirements, as applicable. In the case of services not specified as inpatient-only, they are appropriately provided as inpatient services in accordance with the 2-midnight benchmark. Estimated LOS (days): 2 days is the estimated time the patient will need to remain in the hospital, assuming treatment plan goals are met and no additional complications. Post-Hospital Plan: Not yet determined (Radha Rivera MD R2) 2 Midnight Certification Type: Admission for Inpatient Services Post-Hospital Plan: Not yet determined (Beata Rodriguez MD) Problem Qualifiers (1) CHF exacerbation: Qualified Codes: I50.23 - Acute on chronic systolic (congestive) heart failure Radha Rivera MD R2 Jul 06, 2017 10:40 Beata Rodriguez MD Jul 07, 2017 14:29
[2017-07-06 10:50] LABS: BLOOD, URINE TRACE (NEG); COMMENT (UR) CULT NOT INDICATED; CULTURE IF INDICATED CULT NOT INDICATED; GLUCOSE,URINE NEG (NEG); KETONE, URINE NEG (NEG); MUCUS URINE FEW /lpf (OCC); NITRITE,URINE NEG (NEG); PH, URINE 7.5 (5.0-8.5); URINE COLOR COLORLESS (YELLW/STRAW)
[2017-07-06] MEDS: ENOXAPARIN SODIUM 30 MG/0.3 ML SYRINGE SQ SCH (11:00)
[2017-07-06] MEDS: RESP: ALBUTEROL 2.5 MG/IPRATROPIUM 0.5 MG NEB (SCH) INH ×3 (11:14→20:39)
[2017-07-06] MEDS ORDERED: ASPI81TA67 PO (11:36)
[2017-07-06] MEDS ORDERED: MAGN250T11 PO (11:36)
[2017-07-06] MEDS ORDERED: CALC600T4 PO (11:36)
[2017-07-06] MEDS ORDERED: POTASSIUM CHLORIDE 20 MEQ CONTROLLED RELEASE TAB PO SCH (13:00)
[2017-07-06] MEDS ORDERED: PILL SPLITTER OTHER PRN (13:15)
[2017-07-06] MEDS: FAMOTIDINE 20 MG TAB PO SCH (13:30)
--- NOTE | 2017-07-06 14:28 | HHI.FPPN ---
Problem Problem List: (1) Diabetes (2) Depression (3) Hyperlipidemia (4) Shortness of breath dyspnea (5) Elevated brain natriuretic peptide (BNP) level (6) Renal insufficiency (7) Systolic CHF, acute on chronic (8) Elevated troponin (9) Hypertension (10) History of pulmonary embolism (11) Chronic obstructive pulmonary disease (12) History of coronary artery bypass surgery Subjective Subjective 77 year old male that was last seen in this hospital system in january 2017 -- according to his sister he was hospitalized somewhere in may for possible GI bleed and was in the [facility] -- there are no records about this available and the patient or sister is unable to report more. According to the patient and the sister he has been in rehab since may with very little gains in physical strength. Sister reports he puts for minimal effort with exercise except when the therapist is in the room with him. Reports a couple day history of increasing SOB and was brought to the ED to be evaluated. Patient denies fever, chills, cough, sputum production, able to lie flat but breathing issues wake him from sleep. Denies chest pain. He was admitted and placed on bipap in the ED. A few hours later he was seen by me and resting comfortably on [place] oxygen. Patient is very poor historian and unable to relate most of his medical issues. I gather from the sister and the patient he is in bed most of the day -- gets out of bed with assist to use the toilet and for PT and that is about it. Most of the history is gleaned from the chart from his previous medical stays. PMH/PSH systolic CHF with h/o depressed EF HTN high cholesterol CAD with CABG colectomy with reversal (no cause?) h/o PE h/o Diabetes (not on meds currently) on anticoagulation hypothyroid FH -- not contributory at this time SOCIAL - in rehab since at least may - maybe prior to this. Prior tobacco - no tobacco or ETOH now ROS - negative except per HPI Hospital Objective Objective Laboratory Tests - Abnormals Test 07/06/17 07:45 07/06/17 09:50 Red Blood Count 3.84 MIL/MM3 Hemoglobin 10.6 GM/DL Hematocrit 33.0 % Red Cell Distribution Width 18.5 % Neutrophils (%) (Auto) 71.1 % Prothrombin Time 12.4 SEC Blood Urea Nitrogen 21 MG/DL Creatinine 1.81 MG/DL Random Glucose 162 MG/DL Albumin 2.5 GM/DL Calcium Level 8.1 MG/DL Alkaline Phosphatase 179 U/L Aspartate Amino Transf (AST/SGOT) 10 U/L Estimat Glomerular Filtration Rate 36 ML/MIN Total Creatine Kinase 34 U/L Troponin I 0.19 NG/ML B-Type Natriuretic Peptide 2014 PG/ML Urine Occult Blood TRACE Urine Mucus FEW /lpf Vital Signs 07/06/17 07/06/17 07/06/17 07/06/17 07:22 07:35 07:41 07:42 Temp 97.2 Pulse 76 Resp 22 B/P (MAP) 133/80 (97) Pulse Ox 88 95 94 94 O2 Delivery CPAP CPAP FiO2 50 50 50 07/06/17 11:37 Pulse Ox 98 O2 Delivery Nasal Cannula O2 Flow Rate 4.00 INTAKE & OUTPUT 07/07/17 07:00 Output Total 750 ml Balance -750 ml Physical exam O. CONSTITUTIONAL/GEN: pale, thin appearing, somewhat disheveled, no respiratory distress at the time of my evaluation EYES: conjunctiva normal, PERRLA, EOMI. ENT: Mouth and pharynx normal but somewhat day NECK: thyroid midline, carotids symmetrical. LUNGS: clear A-P, respiratory effort is normal -- no wheezes noted and no significant crackles appreciated on exam. CARDIOVASCULAR: irregular with freq PVC without murmur or gallop. No significant edema. GI/ABD: soft without masses, without organomegaly. : no CVA tenderness NEURO: No focal deficits. Gait is normal SKIN: color normal, no rashes noted, sacral nonblanching erythematous patch -- consistent with stage 1 pressure ulcer HEME/LYMPH: no bruising, petechia or significant adenopathy, guaiac negative ( done by Dr. Moe) MUSC: back is normal in appearance. Extremities are normal in appearance. but muscle wasted, strength diminished throughout PSYCH/MENTAL STATUS: Awake, somewhat somnolent, not disoriented Assessment Assessment: (1) Systolic CHF, acute on chronic Plan: this appears to be improved already with the lasix given to him in the ED. Continue to work up for cause of this exacerbation 1. R/o ACS 2. Trend BNP 3. Fluid restrict and give lasix bid -- monitor renal function closely 4. repeat echo to assess EF (2) Coronary artery disease Plan: Trop appears to be mildly chronically elevated. No sign of ACS at this time. Will maximize medical therapy on coumadin but subtherapuetic -- will repeat coags and adjust coumadin if needed -- might be due to h/o PE -- is being covered with lovenox right now (3) Chronic obstructive pulmonary disease Plan: Clinically this appears to be stable -- continue home meds (4) Hypothyroid Plan: pt on levothyroxine -- no recent TSH -- will check this although value may be altered due to current illness. (5) Pressure ulcer of coccygeal region, stage 1 Plan: wound care to be consulted (6) Diabetes Plan: h/o DM On meds in the past per the Record -- his blood sugar elevated on admission -- will do accucheck and cover with SSI will check Hgba1c to assess and readdress once 24 hours of accucheck and A1c is available (7) Hyperlipidemia Plan: h/o thi sin the note -- not on a statin -- no recent labs -- will check some labs and reassess (8) Hypertension Plan: cont home meds for now and monitor (9) Depression Plan: cont home meds Assessment admit to gen med floor -- monitory closely as above PLAN PLAN as above Beata Rodriguez MD Jul 06, 2017 14:28
[2017-07-06] MEDS ORDERED: DEXTROSE 50% IN WATER 50 ML VIAL(D50) IV PUSH PRN (14:30)
[2017-07-06] MEDS ORDERED: GLUCAGON 1 MG/ML VIAL OTHER PRN (14:30)
[2017-07-06] MEDS ORDERED: FUROSEMIDE 40 MG/4 ML VIAL IV PUSH ONE (14:45)
[2017-07-06] MEDS: SERTRALINE HCL 50 MG TAB PO SCH (14:46)
[2017-07-06] MEDS: LISINOPRIL 5 MG TAB PO SCH (14:47)
[2017-07-06] MEDS: LEVOTHYROXINE SODIUM 50 MCG TAB PO SCH (14:47)
[2017-07-06] MEDS: SUCRALFATE 1 GM TAB PO SCH ×2 (14:48→21:13)
[2017-07-06] MEDS: CARVEDILOL 3.125 MG TAB PO SCH ×2 (14:48→21:14)
--- NOTE | 2017-07-06 14:51 | EKG ---
Date Performed: 07/06/2017 Time Performed: 07:42:50 PTAGE: 77 years EKG: Sinus rhythm WITH OCCASIONAL VENTRICULAR PREMATURE COMPLEXES MODERATE INTRAVENTRICULAR CONDUCTION DELAY NONSPECIF IC ST & T-WAVE ABNORMALITY PROLONGED QT INTERVAL ABNORMAL ECG PREVIOUS TRACING : 02/05/2017 09.23 Compared to the previous tracing, rate has increased DOCTOR: Maurice Gutierrez Interpretating Date/Time 07/06/2017 14:51:04
[2017-07-06 16:30] LABS: BICARBONATE 29.9 MEQ/L (21.0-32.0); POTASSIUM 4.2 MEQ/L (3.5-5.1)
[2017-07-06] MEDS: WARFARIN SOD 4 MG TAB PO SCH (16:49)
[2017-07-06] MEDS: WARFARIN SOD 3 MG TAB PO SCH (16:50)
[2017-07-06] MEDS: FUROSEMIDE 40 MG/4 ML VIAL IV PUSH SCH (16:54)
[2017-07-06] MEDS: INSULIN NovoLIN REGULAR SUPPLEMENTAL SCALE SQ SCH ×2 (17:00→21:00)
[2017-07-06] MEDS: MIRTAZAPINE 15 MG TAB PO SCH (21:00)
[2017-07-06] MEDS: POTASSIUM CHLORIDE 20 MEQ CONTROLLED RELEASE TAB PO SCH (21:12)
[2017-07-06] MEDS: SODIUM CHLORIDE 0.9% FLUSH 10 ML FLUSH IV FLUSH SCH (21:14)
[2017-07-07] VITALS (29 sets, daily range): BP systolic 103–129; BP diastolic 55–70; PULSE 58–74; RESP 16–20; TEMP 97.6–98; O2SAT 95–100
[2017-07-07] MEDS: RESP: ALBUTEROL 2.5 MG/IPRATROPIUM 0.5 MG NEB (SCH) INH ×7 (00:43→23:41)
[2017-07-07] MEDS ORDERED: IODIXANOL 320 MG/ML 10 ML VIAL (for Rad CT) IVCONTRAST ONE (01:03)
--- NOTE | 2017-07-07 01:34 | RADRPT ---
EXAM DATE/TIME: 07/07/2017 00:41 [facility] COMPARISON: CHEST SINGLE AP, February 05, 2017, 9:40. CHEST SINGLE AP, July 06, 2017, 8:12. INDICATIONS : Shortness of breath and elevated D-Dimer. IV CONTRAST: 75 cc Visipaque (iodixanol) IV RADIATION DOSE: 8.55 CTDIvol (mGy) MEDICAL HISTORY : Myocardial infarction. Congestive heart failure. Deep venous thrombosis.PE. COPD. CAD. SURGICAL HISTORY : CABG ENCOUNTER: Initial ACUITY: 1 day PAIN SCALE: 0/10 LOCATION: chest TECHNIQUE: Volumetric scanning of the chest was performed using a pulmonary embolism protocol MIP images were re constructed. Using automated exposure control and adjustment of the mA and/or kV according to patien t size, radiation dose was kept as low as reasonably achievable to obtain optimal diagnostic quality images. DICOM format image data is available electronically for review and comparison. Follow-up recommendations for detected pulmonary nodules are based at a minimum on nodule size and pa tient risk factors according to Fleischner Society Guidelines. FINDINGS: PULMONARY ARTERIES: No filling defects are seen in the pulmonary arteries through the segmental level. LUNGS: There are bilateral perihilar infiltrates and there is significant compressive atelectasis adjacent t o large effusions in the lung bases. PLEURAE: Large bilateral pleural effusions. MEDIASTINUM: There is good visualization of the great vessels of the middle mediastinum. No evidence of mediastin al or hilar adenopathy/mass. Dense atherosclerotic calcifications can including within the coronaries . MUSCULOSKELETAL: Within normal limits for patient age. MISCELLANEOUS: The visualized upper abdominal organs demonstrate no acute abnormality. CONCLUSION: No evidence of pulmonary embolism. Bilateral infiltrates, atelectasis and large effusions Chuck Soriano MD on July 07, 2017 at 1:27 Board Certified Radiologist. This report was verified electronically.
[2017-07-07] MEDS: LEVOTHYROXINE SODIUM 50 MCG TAB PO SCH (06:45)
[2017-07-07 06:52] LABS: AUTOMATED NEUTROPHIL # 4.3 TH/MM3 (1.8-7.7); BASOPHIL # 0.1 TH/MM3 (0-0.2); BASOPHIL % 1.2 % (0.0-2.0); EOSINOPHIL # 0.3 TH/MM3 (0-0.4); EOSINOPHIL % 4.1 % (0.0-4.0); HEMATOCRIT 34.1 % (39.0-51.0); HEMO FLAGS DIFF FINAL; LYMPH % 26.8 % (9.0-44.0); LYMPHOCYTE # 1.8 TH/MM3 (1.0-4.8); MEAN CELL VOLUME 86.6 FL (80.0-100.0); MEAN CORPUSCULAR HGB CONC 32.3 % (32.0-36.0); MONO % 6.1 % (0.0-8.0); NEUT % 61.8 % (16.0-70.0); PLATELET COUNT 313 TH/MM3 (150-450); RED BLOOD COUNT 3.94 MIL/MM3 (4.50-5.90); RED CELL DISTRIBUTION WIDTH 18.5 % (11.6-17.2); WHITE BLOOD COUNT 6.9 TH/MM3 (4.0-11.0)
[2017-07-07 07:07] LABS: APTT (PATIENT) 31.5 SEC (24.3-30.1); INTERNATIONAL NORMALIZED RATIO 1.2 RATIO; PROTHROMBIN TIME - PATIENT 13.5 SEC (9.8-11.6)
[2017-07-07 07:31] LABS: ANION GAP 7 MEQ/L (5-15); BICARBONATE 29.5 MEQ/L (21.0-32.0); BLOOD UREA NITROGEN 24 MG/DL (7-18); CHLORIDE 102 MEQ/L (98-107); GLOMERULAR FILTRATION RATE 37 ML/MIN (>89); MAGNESIUM 2.3 MG/DL (1.5-2.5); POTASSIUM 4.3 MEQ/L (3.5-5.1); SODIUM (NA) 138 MEQ/L (136-145)
[2017-07-07 07:40] LABS: HDL CHOLESTEROL 26.2 MG/DL (40.0-60.0); LDL CHOLESTEROL 112 MG/DL (0-99)
[2017-07-07] MEDS: INSULIN NovoLIN REGULAR SUPPLEMENTAL SCALE SQ SCH ×4 (08:00→22:36)
[2017-07-07] MEDS: FUROSEMIDE 40 MG/4 ML VIAL IV PUSH SCH ×2 (09:57→17:56)
[2017-07-07] MEDS: SUCRALFATE 1 GM TAB PO SCH ×2 (09:57→21:42)
[2017-07-07] MEDS: SODIUM CHLORIDE 0.9% FLUSH 10 ML FLUSH IV FLUSH SCH ×2 (09:58→21:43)
[2017-07-07] MEDS: POTASSIUM CHLORIDE 20 MEQ CONTROLLED RELEASE TAB PO SCH ×2 (09:58→21:43)
[2017-07-07] MEDS: SERTRALINE HCL 50 MG TAB PO SCH (09:58)
[2017-07-07] MEDS: FAMOTIDINE 20 MG TAB PO SCH (09:58)
[2017-07-07] MEDS: CARVEDILOL 3.125 MG TAB PO SCH ×2 (09:59→21:42)
[2017-07-07] MEDS: MULTIVITAMINS/MINERALS THERAPEUTIC TAB PO SCH (09:59)
[2017-07-07] MEDS: LISINOPRIL 5 MG TAB PO SCH (10:03)
[2017-07-07] MEDS: ENOXAPARIN SODIUM 30 MG/0.3 ML SYRINGE SQ SCH (11:35)
--- NOTE | 2017-07-07 12:32 | ECHRPT ---
Indication: Cardiomyopathy CONCLUSIONS Technically difficult study. The left ventricular systolic function is severely reduced with an estimated ejection fraction in th e range of 25-30%. Normal left ventricular size. Wall thickness is normal. There is global left ventricular dysfunction. Moderate mitral valve regurgitation. [id number] aortic valve regurgitation. Aortic valve sclerosis is present. There is trace tricuspid valve regurgitation. The estimated pulmonary arterial pressure is 45.8 mmHg. Trivial pulmonary valve regurgitation. BP: 127 / 84 HR: 98 Rhythm: Sinus MEASUREMENTS (Male / Female) Normal Values Technical Quality:Technically difficult study 2D ECHO RV Internal Dim ED PLAX 2.7 cm LVOT Diameter 2.1 cm LV Ejection Fraction MOD 4C 27.0 % LV Cardiac Index MOD 4C 1456.3 cm/minm LV Ejection Fraction 4C AL 28.9 % LV Cardiac Index 4C AL 1608.0 cm/minm M-MODE LV Diastolic Diameter MM 5.3 cm 4.2 - 5.9 / 3.9 - 5.3 cm LV Systolic Diameter MM 4.4 cm LV Ejection Fraction MM Teich 35.8 % LV Cardiac Index MM Teich 2370.8 cm/minm IVS Diastolic Thickness MM 1.3 cm 0.6 - 1.0 / 0.6 - 0.9 cm LVPW Diastolic Thickness MM 1.3 cm 0.6 - 1.0 / 0.6 - 0.9 cm LV Relative Wall Thickness MM 0.5 0.24 - 0.42 / 0.22 - 0.42 LV Mass Index MM 136.0 g/m 49 - 115 / 43 - 95 g/m Aortic Root Diameter MM 2.4 cm AV Cusp Separation MM 1.6 cm DOPPLER AV Peak Velocity 136.0 cm/s AV Peak Gradient 7.4 mmHg AI Peak Velocity 375.5 cm/s AI Peak Gradient 56.4 mmHg AI Pressure Half Time 435.5 ms LVOT Peak Velocity 87.9 cm/s LVOT Peak Gradient 3.1 mmHg AV Area Cont Eq pk 2.2 cm MV Peak Velocity 114.0 cm/s MV Peak Gradient 5.2 mmHg MV Mean Velocity 51.9 cm/s MV Mean Gradient 1.0 mmHg MV Area PHT 3.6 cm MR ERO PISA 18.2 cm Mitral E Point Velocity 62.7 cm/s Mitral A Point Velocity 54.8 cm/s Mitral E to A Ratio 1.1 LV E' Lateral Velocity 3.9 cm/s Mitral E to LV E' Lateral Ratio 16.1 LV E' Septal Velocity 3.3 cm/s Mitral E to LV E' Septal Ratio 18.9 TR Peak Velocity 299.0 cm/s TR Peak Gradient 35.8 mmHg Right Atrial Pressure 10.0 mmHg Pulmonary Artery Systolic Pressu 45.8 mmHg Right Ventricular Systolic Press 45.8 mmHg PV Peak Velocity 95.0 cm/s PV Peak Gradient 3.6 mmHg FINDINGS LEFT VENTRICLE The left ventricular systolic function is severely reduced with an estimated ejection fraction in th e range of 25-30%. Normal left ventricular size. Wall thickness is normal. There is global left ventricular dysfunction. RIGHT VENTRICLE Normal right ventricular size and systolic function. LEFT ATRIUM The left atrial size is normal. RIGHT ATRIUM The right atrial size is normal. ATRIAL SEPTUM Normal atrial septal thickness without atrial level shunting by limited color doppler interrogation. AORTA The aortic root and proximal ascending aorta are normal in size on limited imaging. MITRAL VALVE Moderate mitral valve regurgitation. AORTIC VALVE [id number] aortic valve regurgitation. Aortic valve sclerosis is present. TRICUSPID VALVE There is trace tricuspid valve regurgitation. The estimated pulmonary arterial pressure is 45.8 mmHg. PULMONARY VALVE Trivial pulmonary valve regurgitation. VESSELS The inferior vena cava is normal in size. PERICARDIUM No pericardial effusion. Laurent Beth MD, FACC (Electronically Signed) Final Date:07 July 2017 12:31
--- NOTE | 2017-07-07 12:55 | HHI.FPPN ---
Subjective Remarks No acute events overnight. AFVSS overnight. Patient weaned onto nasal canula overnight. Patient reports feeling better. He denies any complaints including SOB or chest pain. (Garret Moe MD R2) Objective Vitals Vital Signs Date Time Temp Pulse Resp B/P (MAP) Pulse Ox O2 Delivery O2 Flow Rate FiO2 07/07/17 11:29 97.6 16 115/55 (75) 07/07/17 11:00 68 07/07/17 10:00 72 07/07/17 09:00 64 07/07/17 08:28 97.9 74 16 129/65 (86) 96 07/07/17 08:00 64 07/07/17 07:52 97 Nasal Cannula 5.00 07/07/17 07:30 67 07/07/17 06:00 74 07/07/17 05:00 64 07/07/17 04:25 97 Nasal Cannula 3.00 07/07/17 04:00 64 07/07/17 03:00 64 07/07/17 03:00 71 20 109/55 (73) 95 07/07/17 02:00 64 07/07/17 00:00 66 07/06/17 23:00 82 20 115/75 (88) 95 07/06/17 23:00 64 07/06/17 22:00 68 07/06/17 21:00 72 07/06/17 20:00 70 07/06/17 20:00 97.4 68 20 116/77 (90) 95 07/06/17 19:00 80 07/06/17 16:48 93 Nasal Cannula 5.00 07/06/17 15:30 98.1 89 20 127/84 (98) 100 07/06/17 13:01 97.7 78 20 113/72 (86) 100 I/O 07/06/17 07/06/17 07/06/17 07/07/17 07/07/17 07/07/17 07:00 15:00 23:00 07:00 15:00 23:00 Intake Total 240 ml 360 ml Output Total 750 ml 1325 ml 750 ml Balance -750 ml -1085 ml -390 ml Intake Oral 240 ml 360 ml Output Urine Total 750 ml 1325 ml 750 ml # Voids 1 # Bowel Movements 0 4 (Garret Moe MD R2) Result Diagram: 07/07/17623 07/07/17 0624 Imaging Last Impressions Chest X-Ray 07/06/17 0721 Signed Impressions: Service Date/Time: Thursday, July 06, 2017 08:12 - CONCLUSION: Radiographic pattern suggesting intra-alveolar pulmonary edema with bilateral pleural effusions. Ray Garza Jr., MD CT Angiography 07/06/17 0000 Signed Impressions: Service Date/Time: June 00:41 - CONCLUSION: No evidence of pulmonary embolism. Bilateral infiltrates, atelectasis and large effusions Chuck Soriano MD Objective Remarks CONSTITUTIONAL/GEN: pale, thin appearing, somewhat disheveled, no respiratory distress at the time of my evaluation, NC in place EYES: conjunctiva normal, EOMI ENT: MMM NECK: thyroid midline, carotids symmetrical. LUNGS: clear A-P, respiratory effort is normal -- no wheezes noted and no significant crackles appreciated on exam. CARDIOVASCULAR: irregular with freq PVC without murmur or gallop. No significant edema. GI/ABD: soft without masses, without organomegaly. NEURO: No focal deficits. Gait not assessed. SKIN: color normal, no rashes noted, sacral nonblanching erythematous patch -- consistent with stage 1 pressure ulcer HEME/LYMPH: no bruising, petechia or significant adenopathy MUSC: back is normal in appearance. Extremities are normal in appearance. but muscle wasted, strength diminished throughout PSYCH/MENTAL STATUS: Awake, somewhat somnolent, not disoriented (Garret Moe MD R2) A/P Assessment and Plan 76-year-old male with history of coronary artery disease status post CABG, COPD , severe CHF with EF of 20% admitted for acute systolic CHF exacerbation Discharge Planning Planning for discharge back to SNF (Garret Moe MD R2) Attending Attestation Patient seen and examined. Case reviewed and discussed with the resident team. Agree with plan of care as discussed with me and documented in the resident note. (Beata Rodriguez MD) Problem List: (1) CHF exacerbation ICD Codes: I50.9 - Heart failure, unspecified Status: Acute Plan: Combination of acute CHF and probable COPD exacerbation. pt seems improved s/p BIPAP - Treat CHF: diuresis with furosemide 40 IV BID, supplement with KCl 40mEq q12h - Last Echo in 01/2017: EF 20-25%; today's Echo EF 25-30% - f/u BMP - Supplemental oxygen PRN, breathing treatments - f/u lipid profile, HbA1c, TSH Work up: - CXR: pulmonary edema, consistent with CHF (2) History of pulmonary embolism ICD Codes: Z86.711 - Personal history of pulmonary embolism Status: Resolved Plan: INR 1.1, 1.2 Will increase Warfarin dosage Lovenox 30 (CKD stage 3) Will d/c lovenox when INR >2 (3) CKD (chronic kidney disease) stage 3, GFR 30-59 ml/min ICD Codes: N18.3 - Chronic kidney disease, stage 3 (moderate) Status: Chronic Plan: Creat 1.81 - Continue ACEi at this time - Continue lasix 40 IV BID at this time - f/u BMP Baseline Creat 2.3 in 02/09 (4) Chronic obstructive pulmonary disease ICD Codes: J44.9 - Chronic obstructive pulmonary disease, unspecified Status: Chronic Plan: -breathing treatments and O2 PRN (5) Pressure ulcer of coccygeal region, stage 1 ICD Codes: L89.151 - Pressure ulcer of sacral region, stage 1 Plan: -wound care consult appreciated: Recommendation: Please cleanse buttock and sacral area gently with soap and water and pat dry. Apply Calazime barrier cream BID and PRN and leave open to air. Please assist patient with offloading pressure to sacral area every 2 hours and PRN for comfort. (6) fen/ppx Status: Chronic Plan: fluids: PO only electrolytes: f/u BMP nutrition: heart healthy diet gippx: cont sucralfate 1g BID dvt ppx: increase warfarin to 8mg daily, lovenox 30mg now for bridge until INR > 2 (7) Elevated troponin ICD Codes: R74.8 - Abnormal levels of other serum enzymes Status: Chronic Plan: troponins and EKGs stable, likely 2/2 to CHF and CKD (Garret Moe MD R2) Problem Qualifiers (1) CHF exacerbation: Qualified Codes: I50.23 - Acute on chronic systolic (congestive) heart failure Garret Moe MD R2 Jul 07, 2017 12:55 Beata Rodriguez MD Jul 08, 2017 10:46
--- NOTE | 2017-07-07 13:23 | PD.WCN.NOT ---
Wound Consult Description: Received consult for wound management from Doctor Ybarra. Doctor Amada was initially consulted from Radha Mccarthy MD R2 for sacral stage 1 Communicated with: [facility] and [facility], Call placed to Doctor Mccarthy Recommendation: Please cleanse buttock and sacral area gently with soap and water and pat dry. Apply Calazime barrier cream BID and PRN and leave open to air. Please assist patient with offloading pressure to sacral area every 2 hours and PRN for comfort. Additional Information: Patient seen on [facility] for evaluation of wound management of sacral area. Patient turned to R side with minimal assist from rfp writer and pulled brief down to reveal non blanchable erythema to intact skin on sacral area with macerated intact skin to gluteal cleft. Non blanchable erythema over a jelly prominence indicates stage 1 pressure injury. Replaced brief. Discussed the importance of offloading pressure from buttock area every 2 hours with patient. Patient verbalizes understanding. Spoke with [facility] and [facility] regarding preventative surface for patient. Patient is currently laying on regular old hill rom bed in [facility], patient could benefit from new Malika bed in [facility]. [facility] will apply Calazime barrier cream on patient when obtained. Anne Wick [facility] Jul 07, 2017 13:23
--- NOTE | 2017-07-07 13:28 | EKG ---
Date Performed: 07/06/2017 Time Performed: 20:35:22 PTAGE: 77 years EKG: Sinus rhythm with PAC(s) Prolonged QT interval Possible left atrial abnormality Left ventricular hypertrophy Exte nsive ST-T changes may be due to hypertrophy and/or ischemia Abnormal ECG Since PREVIOUS TRACING , no significant change noted PREVIOUS TRACING DOCTOR: Leia Desai Interpretating Date/Time 07/07/2017 13:26:47
--- NOTE | 2017-07-07 13:29 | EKG ---
Date Performed: 07/06/2017 Time Performed: 14:14:24 PTAGE: 77 years EKG: Sinus rhythm with PVC(s) with PAC(s). Left bundle branch block Anteroseptal ST-T changes are nonspecific Low QRS voltages in limb leads Abnormal ECG Compared to PREVIOUS TRACING , the patient no longer has criteria for LVH. The frequent PVCs are new, otherwise no significant serial change. PREVIOUS TRACIN07/06/2017 07.42 DOCTOR: Leia Desai Interpretating Date/Time 07/07/2017 13:27:21
--- NOTE | 2017-07-07 13:37 | MB ---
cc: ARGENTINALAURENDUSTIN DATE OF CONSULTATION 07/07/2017 REASON FOR CONSULTATION Mr. Reed is a 77-year-old white male with a history of congestive heart failure, cardiomyopathy, severe left ventricle dysfunction with an ejection fraction of 20%, coronary artery bypass, COPD and pulmonary embolism. He presented with a one day history of increased shortness of breath. He has not had any chest pain. He complains of PND and increased edema. He has been on oxygen in his rehabilitation facility. PAST MEDICAL HISTORY Past medical history is positive for: 1. Coronary artery disease 2. Coronary bypass 3. Cardiomyopathy with severe anterior systolic function with Ejection fraction of 20%. 4. COPD 5. Depression 6. Colon resection 7. Colostomy and reversal MEDICATIONS Include: 1. Remeron 2. Potassium chloride 3. Furosemide 4. Warfarin 5. Insulin 6. Pepcid 7. Prinivil 8. Insulin 9. Carvedilol 10. Carafate 11. Lovenox ALLERGIES None SOCIAL HISTORY The patient does not smoke. He drinks alcohol socially. FAMILY HISTORY Positive for heart disease. REVIEW OF SYSTEMS Otherwise negative. PHYSICAL EXAMINATION VITAL SIGNS: Blood pressure 129/65, pulse and regular. HEENT: Negative. NECK: 2+ carotid upstrokes. No bruits. LUNGS: Clear. HEART: Regular with no murmur, gallop or rub. ABDOMEN: Soft. No bruits. EXTREMITIES: Marked edema. 1+ distal pulses. NEUROLOGIC: Nonfocal. EKG was reviewed and showed a normal sinus rhythm, normal axis, and nonspecific ST-T changes. LABORATORY DATA Hemoglobin 11.0, potassium 4.3, creatinine 1.9 and 1.77, troponin 0.99, 0.25 and 0.26. LDL 112, HDL 26. DIAGNOSIS 1. Acute exacerbation of chronic systolic congestive heart Failure 2. Coronary artery disease with a history of coronary bypass. 3. Mildly abnormal troponin. 4. History of pulmonary embolism. 5. Chronic kidney disease 6. COPD DISPOSITION Mr. Reed will be monitored on telemetry. We will continue therapy for CHF exacerbation including IV diuresis closely monitoring his renal function. He has a history of renal insufficiency. His mildly elevated troponin is likely related to his renal insufficiency. We will obtain an echocardiogram to evaluate his left ventricular function. I recommend to continue therapy for COPD as well. Recommend to continue CHF therapy including lisinopril and carvedilol. Thank you for asking me to see Mr. Reed for cardiology during his hospitalization. MD RACHEL Soni/JAY JAY /1:12 PM /1:22 PM
[2017-07-07] MEDS: WARFARIN SOD 4 MG TAB PO SCH (17:56)
[2017-07-07] MEDS: WARFARIN SOD 3 MG TAB PO SCH (17:56)
[2017-07-07] MEDS: MIRTAZAPINE 15 MG TAB PO SCH (21:42)
[2017-07-08] VITALS (20 sets, daily range): BP systolic 102–108; BP diastolic 64–69; PULSE 53–88; RESP 16–20; TEMP 97.9–98; O2SAT 94–99
[2017-07-08 02:05] LABS: INTERNATIONAL NORMALIZED RATIO 1.2 RATIO; PROTHROMBIN TIME - PATIENT 13.9 SEC (9.8-11.6)
[2017-07-08 02:22] LABS: BICARBONATE 29.7 MEQ/L (21.0-32.0); POTASSIUM 3.8 MEQ/L (3.5-5.1)
[2017-07-08] MEDS: RESP: ALBUTEROL 2.5 MG/IPRATROPIUM 0.5 MG NEB (SCH) INH ×4 (04:41→15:54)
[2017-07-08] MEDS: LEVOTHYROXINE SODIUM 50 MCG TAB PO SCH ×2 (06:00→08:54)
[2017-07-08] MEDS: INSULIN NovoLIN REGULAR SUPPLEMENTAL SCALE SQ SCH ×3 (08:00→17:00)
[2017-07-08] MEDS: FUROSEMIDE 40 MG/4 ML VIAL IV PUSH SCH (08:54)
[2017-07-08] MEDS: POTASSIUM CHLORIDE 20 MEQ CONTROLLED RELEASE TAB PO SCH (08:55)
[2017-07-08] MEDS: LISINOPRIL 5 MG TAB PO SCH (08:55)
[2017-07-08] MEDS: FAMOTIDINE 20 MG TAB PO SCH (08:55)
[2017-07-08] MEDS: SUCRALFATE 1 GM TAB PO SCH (08:55)
[2017-07-08] MEDS: CARVEDILOL 3.125 MG TAB PO SCH (08:56)
[2017-07-08] MEDS: MULTIVITAMINS/MINERALS THERAPEUTIC TAB PO SCH (08:56)
[2017-07-08] MEDS: SERTRALINE HCL 50 MG TAB PO SCH (08:56)
[2017-07-08] MEDS: SODIUM CHLORIDE 0.9% FLUSH 10 ML FLUSH IV FLUSH SCH (09:00)
--- NOTE | 2017-07-08 09:13 | HHI.FPPN ---
Subjective Remarks Patient seen and examined this morning. Patient is able to say who he is and where he is. He does agree that he originally was brought to the hospital for shortness of breath. He states that his shortness of breath has improved. He denies any chest pain or difficulty breathing. He denies any fever/chills. It is hard to extrapolate much information from this patient. (Radha Rivera MD R2) Objective Vitals Vital Signs Date Time Temp Pulse Resp B/P (MAP) Pulse Ox O2 Delivery O2 Flow Rate FiO2 07/08/17 08:39 98 Nasal Cannula 3.00 07/08/17 06:00 64 07/08/17 05:00 60 07/08/17 04:00 68 07/08/17 03:00 62 07/08/17 03:00 68 20 108/64 (79) 98 07/08/17 02:00 62 07/08/17 01:00 64 07/08/17 00:00 66 07/07/17 23:00 68 07/07/17 23:00 97.6 73 20 120/67 (84) 99 07/07/17 22:00 66 07/07/17 21:00 68 07/07/17 20:45 96 Nasal Cannula 4.00 07/07/17 20:00 72 07/07/17 19:30 97.9 73 20 103/70 (81) 99 07/07/17 19:00 64 07/07/17 18:00 68 07/07/17 16:00 62 07/07/17 15:00 58 07/07/17 14:41 98.0 16 104/56 (72) 100 07/07/17 14:00 58 07/07/17 13:00 62 07/07/17 12:00 64 07/07/17 11:29 97.6 68 16 115/55 (75) 96 07/07/17 11:00 68 07/07/17 10:00 72 I/O 07/07/17 07/07/17 07/07/17 07/08/17 07/08/17 07/08/17 07:00 15:00 23:00 07:00 15:00 23:00 Intake Total 360 ml 0 ml 720 ml 240 ml Output Total 750 ml 0 ml 950 ml 800 ml Balance -390 ml 0 ml -230 ml -560 ml Intake Oral 360 ml 0 ml 720 ml 240 ml Output Urine Total 750 ml 0 ml 950 ml 800 ml # Bowel Movements 4 (Radha Rivera MD R2) Result Diagram: 07/07/17 0624 07/08/17 0148 Objective Remarks CONSTITUTIONAL/GEN: pale, thin appearing, no respiratory distress at the time of my evaluation, NC in place EYES: conjunctiva normal, EOMI ENT: MMM NECK: thyroid midline, carotids symmetrical. LUNGS: clear A-P, respiratory effort is normal -- no wheezes noted and no significant crackles appreciated on exam. CARDIOVASCULAR: Regular rate and rhythm, no murmur appreciated No significant edema. GI/ABD: soft without masses, without organomegaly. NEURO: No focal deficits. Gait not assessed. SKIN: color normal, no rashes noted, sacral nonblanching erythematous patch -- consistent with stage 1 pressure ulcer HEME/LYMPH: no bruising, petechia or significant adenopathy MUSC: back is normal in appearance. Extremities are normal in appearance. but muscle wasted, strength diminished throughout PSYCH/MENTAL STATUS: Awake, somewhat somnolent, not disoriented (Radha Rivera MD R2) A/P Assessment and Plan 76-year-old male with history of coronary artery disease status post CABG, COPD , severe CHF with EF of 20% admitted for acute systolic CHF exacerbation Discharge Planning Planning for discharge back to SNF (Radha Rivera MD R2) Attending Attestation Patient seen and examined. Case reviewed and discussed with the resident team. Agree with plan of care as discussed with me and documented in the resident note. (Beata Rodriguez MD) Problem List: (1) CHF exacerbation ICD Codes: I50.9 - Heart failure, unspecified Status: Acute Plan: Combination of acute CHF and probable COPD exacerbation. pt seems improved s/p BIPAP - Treat CHF: diuresis with furosemide 40 IV BID, supplement with KCl 40mEq q12h - Last Echo in 01/2017: EF 20-25%; Echo 07/08 EF 25-30% - BMP: Creat 1.97 (baseline 2.3) - Supplemental oxygen PRN, breathing treatments - lipid profile WNL, TSH WNL - f/u HbA1c Work up: - CXR: pulmonary edema, consistent with CHF (2) History of pulmonary embolism ICD Codes: Z86.711 - Personal history of pulmonary embolism Status: Resolved Plan: INR 1.1, 1.2, 1.2 - Warfarin 8mg daily - Cont Lovenox 30 until INR >2 Home dosage Warfarin 6mg Lovenox 30 (CKD stage 3) Will d/c lovenox when INR >2 (3) CKD (chronic kidney disease) stage 3, GFR 30-59 ml/min ICD Codes: N18.3 - Chronic kidney disease, stage 3 (moderate) Status: Chronic Plan: Creat 1.97 - Continue ACEi at this time - Continue lasix 40 IV BID at this time - f/u BMP Baseline Creat 2.3 in 02/09 (4) Chronic obstructive pulmonary disease ICD Codes: J44.9 - Chronic obstructive pulmonary disease, unspecified Status: Chronic Plan: -breathing treatments and O2 PRN (5) Pressure ulcer of coccygeal region, stage 1 ICD Codes: L89.151 - Pressure ulcer of sacral region, stage 1 Plan: -wound care consult appreciated: Recommendation: Please cleanse buttock and sacral area gently with soap and water and pat dry. Apply Calazime barrier cream BID and PRN and leave open to air. Please assist patient with offloading pressure to sacral area every 2 hours and PRN for comfort. (6) Elevated troponin ICD Codes: R74.8 - Abnormal levels of other serum enzymes Status: Chronic Plan: troponins and EKGs stable, likely 2/2 to CHF and CKD (7) fen/ppx Status: Chronic Plan: fluids: PO only electrolytes: f/u BMP nutrition: heart healthy diet gippx: cont sucralfate 1g BID dvt ppx: increase warfarin to 8mg daily, lovenox 30mg now for bridge until INR > 2 (Radha Rivera MD R2) Problem Qualifiers (1) CHF exacerbation: Qualified Codes: I50.23 - Acute on chronic systolic (congestive) heart failure Radha Rivera MD R2 Jul 08, 2017 09:13 Beata Rodriguez MD Jul 08, 2017 14:19
[2017-07-08] MEDS: ENOXAPARIN SODIUM 30 MG/0.3 ML SYRINGE SQ SCH (11:16)
[2017-07-08] MEDS ORDERED: WARF-21 PO (12:43)
[2017-07-08] MEDS ORDERED: WARF4TAB52 PO (12:43)
--- NOTE | 2017-07-08 12:44 | HHI.DCPOC ---
Discharge Care Plan Diagnosis: (1) Acute respiratory failure (2) CKD (chronic kidney disease) stage 3, GFR 30-59 ml/min (3) Bilateral pleural effusion (4) Shortness of breath dyspnea (5) Systolic CHF, acute on chronic Goals to Promote Your Health * To prevent worsening of your condition and complications * To maintain your health at the optimal level Directions to Meet Your Goals Take your medications as prescribed Follow your dietary instruction Follow activity as directed Keep your appointments as scheduled Take your immunizations and boosters as scheduled If your symptoms worsen call your PCP, if no PCP go to Urgent Care Center or Emergency Room Smoking is Dangerous to Your Health. Avoid second hand smoke Call the 24-hour hour crisis hotline for domestic abuse at Radha Rivera MD R2 Jul 08, 2017 12:44
[2017-07-08] MEDS ORDERED: ENOX30P SQ (13:55)
--- NOTE | 2017-07-08 14:35 | PD.CARD.PN ---
Subjective Subjective Remarks Denies CP or SOB, CT angio negative for PE Objective Medications Current Medications Medications (Trade) Dose Ordered Sig/Srinath Route Start Time Stop Time Status Last Admin (NS Flush) 2 ml UNSCH PRN IV FLUSH 07/06/17 09:15 (NS Flush) 2 ml BID IV FLUSH 07/06/17 21:00 07/08/17 09:00 (Duoneb Neb) 1 ampule Q4HR NEB INH 07/06/17 12:00 07/08/17 11:08 (Albuterol Neb) 2.5 mg Q2HR NEB PRN INH 07/06/17 10:00 (Lovenox Inj) 30 mg Q24H SQ 07/06/17 11:00 07/08/17 11:16 (Proair Hfa Inh) 1 puff Q4H PRN INH 07/06/17 10:00 (Coreg) 3.125 mg BID PO 07/06/17 13:00 07/08/17 08:56 (Atarax) 25 mg QID PRN PO 07/06/17 10:00 (Synthroid) 50 mcg DAILY@0600 PO 07/06/17 10:00 07/08/17 08:54 (Imodium) 2 mg DAILY PRN PO 07/06/17 10:00 (Remeron) 15 mg HS PO 07/06/17 21:00 07/07/17 21:42 (Theragran M Tab) 1 tab DAILY PO 07/07/17 09:00 07/08/17 08:56 (Zoloft) 75 mg DAILY PO 07/06/17 10:00 07/08/17 08:56 (Carafate) 1 gm BID PO 07/06/17 13:00 07/08/17 08:55 (Prinivil) 2.5 mg DAILY PO 07/06/17 13:15 07/08/17 08:55 (Pepcid) 20 mg DAILY PO 07/06/17 13:30 07/08/17 08:55 (Lasix Inj) 40 mg BID@09,18 IV PUSH 07/06/17 18:00 07/08/17 08:54 (Pill Splitter) 1 ea UNSCH PRN OTHER 07/06/17 13:15 (Coumadin) 4 mg DAILY@1600 PO 07/06/17 16:00 07/07/17 17:56 (Coumadin) 3 mg DAILY@1600 PO 07/06/17 16:00 07/07/17 17:56 (D50w (Vial) Inj) 50 ml UNSCH PRN IV PUSH 07/06/17 14:30 (Glucagon Inj) 1 mg UNSCH PRN OTHER 07/06/17 14:30 (NovoLIN R SUPPLEMENTAL SCALE) 1 ACHS SLIDING SCALE SQ 07/06/17 17:00 07/07/17 22:36 (KCl) 40 meq Q12HR PO 07/06/17 21:00 07/08/17 08:55 (Coumadin) 1 mg DAILY@16 PO 07/08/17 16:00 Vital Signs / I&O Vital Signs Date Time Temp Pulse Resp B/P (MAP) Pulse Ox O2 Delivery O2 Flow Rate FiO2 07/08/17 14:00 53 07/08/17 13:03 61 07/08/17 12:00 61 07/08/17 11:15 97 Nasal Cannula 2.00 07/08/17 11:00 57 07/08/17 11:00 97.9 88 16 102/69 (80) 95 07/08/17 10:00 67 07/08/17 09:00 58 07/08/17 08:39 98 Nasal Cannula 3.00 07/08/17 08:00 80 07/08/17 07:15 58 07/08/17 07:15 98.0 80 16 102/69 (80) 94 07/08/17 06:00 64 07/08/17 05:00 60 07/08/17 04:00 68 07/08/17 03:00 62 07/08/17 03:00 68 20 108/64 (79) 98 07/08/17 02:00 62 07/08/17 01:00 64 07/08/17 00:00 66 07/07/17 23:00 68 07/07/17 23:00 97.6 73 20 120/67 (84) 99 07/07/17 22:00 66 07/07/17 21:00 68 07/07/17 20:45 96 Nasal Cannula 4.00 07/07/17 20:00 72 07/07/17 19:30 97.9 73 20 103/70 (81) 99 07/07/17 19:00 64 07/07/17 18:00 68 07/07/17 16:00 62 07/07/17 15:00 58 07/07/17 14:41 98.0 16 104/56 (72) 100 I/O 07/07/17 07/07/17 07/07/17 07/08/17 07/08/17 07/08/17 07:00 15:00 23:00 07:00 15:00 23:00 Intake Total 360 ml 0 ml 720 ml 240 ml Output Total 750 ml 0 ml 950 ml 800 ml Balance -390 ml 0 ml -230 ml -560 ml Intake Oral 360 ml 0 ml 720 ml 240 ml Output Urine Total 750 ml 0 ml 950 ml 800 ml # Bowel Movements 4 Physical Exam GENERAL: In NAD. SKIN: Warm and dry. HEAD: Normocephalic. EYES: No scleral icterus. No injection or drainage. NECK: Supple, trachea midline. No JVD or lymphadenopathy. CARDIOVASCULAR: Regular rate and rhythm without murmurs, gallops, or rubs. RESPIRATORY: Breath sounds decreased bilaterally. No accessory muscle use. GASTROINTESTINAL: Abdomen soft, non-tender, nondistended. MUSCULOSKELETAL: No cyanosis, or edema. Laboratory Laboratory Tests Test 07/08/17 01:48 07/08/17 12:41 Prothrombin Time 13.9 SEC Prothromb Time International Ratio 1.2 RATIO Blood Urea Nitrogen 29 MG/DL Creatinine 1.97 MG/DL Random Glucose 79 MG/DL Calcium Level 8.1 MG/DL Sodium Level 139 MEQ/L Potassium Level 3.8 MEQ/L Chloride Level 102 MEQ/L Carbon Dioxide Level 29.7 MEQ/L Anion Gap 7 MEQ/L Estimat Glomerular Filtration Rate 33 ML/MIN Assessment and Plan Problem List: (1) Systolic CHF, acute on chronic ICD Codes: I50.23 - Acute on chronic systolic (congestive) heart failure Status: Acute (2) Ischemic cardiomyopathy ICD Codes: I25.5 - Ischemic cardiomyopathy Status: Acute (3) History of coronary artery bypass surgery ICD Codes: Z95.1 - Presence of aortocoronary bypass graft Status: Acute (4) History of pulmonary embolism ICD Codes: Z86.711 - Personal history of pulmonary embolism Status: Resolved (5) CKD (chronic kidney disease) stage 3, GFR 30-59 ml/min ICD Codes: N18.3 - Chronic kidney disease, stage 3 (moderate) Status: Chronic (6) Chronic obstructive pulmonary disease ICD Codes: J44.9 - Chronic obstructive pulmonary disease, unspecified Status: Chronic Assessment and Plan Echo with severe LV dysfunction and moderate MR. CT angio negative for CT; shows bilat infiltrates and pleural effusions. Continue tx for CHF including diuresis. Monitor renal fx. Wean off O2. Discharge to SNF once stable. Brent Rodriguez MD Jul 08, 2017 14:35
[2017-07-08 14:52] LABS: C. DIFF EPI 027 PRESUMPTIVE POSITIVE (NEGATIVE)
[2017-07-08] MEDS ORDERED: METR500T10 PO (15:45)
[2017-07-08] MEDS ORDERED: WARFARIN SOD 1 MG TAB PO SCH (16:00)
[2017-07-08] MEDS: WARFARIN SOD 4 MG TAB PO SCH (16:17)
[2017-07-08] MEDS: WARFARIN SOD 3 MG TAB PO SCH (16:17)
[2017-07-08 17:05] LABS: HEMOGLOBIN A1a 1.8 %; HEMOGLOBIN A1b 0.9 %; HEMOGLOBIN Ao 84.2 %; HEMOGLOBIN F 1.3 %; HEMOGLOBIN LA1C 1.6 %; HEMOGLOBIN P3 5.3 %
== END 2017-07-08 17:45 | DRG 291 ==
LOC: NEPC 07:14 → NEDA 09:17 → HCIN 13:07
PROVIDERS: ADMIT Family Medicine; ATTEND Family Medicine
PROC: 5A09357 Assistance with Respiratory Ventilation, Less than 24 Consecutive Hours, Continuous Positive Airway Pressure (ICD-10-PCS; principal; 2017-07-06)
DX: I13.0 Hypertensive heart and chronic kidney disease with heart failure and stage 1 through stage 4 chronic kidney disease, or unspecified chronic kidney disease (principal); I50.23 Acute on chronic systolic (congestive) heart failure; J96.00 Acute respiratory failure, unspecified whether with hypoxia or hypercapnia; J44.1 Chronic obstructive pulmonary disease with (acute) exacerbation; L89.151 Pressure ulcer of sacral region, stage 1; N18.3 Chronic kidney disease, stage 3 (moderate); Z95.1 Presence of aortocoronary bypass graft; I25.10 Atherosclerotic heart disease of native coronary artery without angina pectoris; E11.22 Type 2 diabetes mellitus with diabetic chronic kidney disease; Z79.01 Long term (current) use of anticoagulants; Z86.711 Personal history of pulmonary embolism; I25.5 Ischemic cardiomyopathy; F32.9 Major depressive disorder, single episode, unspecified; E78.5 Hyperlipidemia, unspecified; E03.9 Hypothyroidism, unspecified; Z87.891 Personal history of nicotine dependence
CPT/HCPCS: 51702; 71010; 71275; 80048; 80053; 80061; 81001; 82550; 82948; 83036; 83735; 83880; 84145; 84443; 84484; 85025; 85379; 85610; 85730; 86403; 87040; 87077; 87186; 87205; 87493; 93005; 93306; 94002; 94150; 94640; 94664; J1650; J1940; Q9967